=== PATIENT | female | born 1980 | race Caucasian/White ===

== ENCOUNTER 2023-02-05 08:24 | Emergency (ER) | payer MEDICAID, SELFPAY ==
[2023-02-05 08:35] VITALS: BP 128/91; PULSE 86; RESP 20; O2SAT 100; BMI 31.7
--- NOTE | 2023-02-05 08:37 | CRLHL7_ITS ---
For Patients: As a result of the Century Cures Act, medical imaging exams and procedure reports are released immediately into your electronic medical record. You may view this report before your referring provider. If you have questions, please contact your health care provider. INDICATION: upper abdominal pain COMPARISON: none TECHNIQUE: Real time merino scale imaging and color Doppler analysis was performed of the right upper quadrant. FINDINGS: The patient`s liver is of normal size and has uniform echogenicity. There is a normal appearance of the hepatic IVC and proximal abdominal aorta. There is no evidence of ascites. The gallbladder is of normal size and there is adherent echogenic material within the gallbladder fundus measuring up to 6.8 millimeters. The gallbladder wall measures 2.5 mm in thickness. The common bile duct is of normal size and measures 3.6 mm in diameter at the level of the treva hepatis. The pancreas appears normal. There is no evidence of a stone or hydronephrosis within the right kidney. The right kidney measures 9.6 cm in length. IMPRESSION: Hypoechoic adherent material within the gallbladder fundus measuring up to 6.8 millimeters, gallbladder polyp or focal adenomyomatosis. Follow-up in 1 year recommended. However, if the patient is focally tender in the right upper quadrant, consider surgical referral. Dictated by Jairo Larson MD @ 02/05/2023 9:28:31 AM (Electronically Signed)
--- NOTE | 2023-02-05 08:43 | ED.GENADULT ---
HPI - General Adult General Date Seen: 02/05/23 Chief complaint: Abdominal Pain Stated complaint: abdominal pain, vomiting Time Seen by Provider: 02/05/23 08:36 Source: patient Mode of arrival: ambulatory Limitations: no limitations History of Present Illness HPI narrative: Patient is a 42-year-old woman who presents for evaluation of upper abdominal pain. She said she had rather abrupt onset of pain around 5:00 p.m. last night but it was worse this morning when she woke up, and ultimately she vomited. She has not had diarrhea, fevers, black or bloody stools, urinary symptoms. No history of similar previous pain. No abdominal surgeries. No suspicion of , she does take control pills and last period was normal. General health is good. Allergies to vancomycin. She does not smoke or drink significantly. Related Data Previous Rx's Medication Instructions Recorded cetirizine 10 mg tablet 10 mg PO QDAY #90 tabs 12/06/22 dextroamphetamine-amphetamine 20 30 mg (1.5 x 20 mg) PO QDAY #45 01/27/23 mg tablet tabs Allergies Allergy/AdvReac Type Severity Reaction Status Date / Time Vancomycin Allergy Severe body Uncoded 06/16/22 10:41 swelling Review of Systems Status of ROS: Reports: 6 or more systems reviewed and unremarkable except as noted in History and below [facility] Medical History Pain of foot ?M79.673 - Pain in unspecified foot (ICD-10) ADD (attention deficit disorder) ?F98.8 - Other specified behavioral and emotional disorders with onset usually occurring in childhood and adolescence (ICD-10) Social History Smoking Status: Current every day smoker What tobacco products do you use: cigarettes Second hand tobacco smoke exposure: Yes How often do you have a drink containing alcohol: never How often do you have six or more drinks on one occasion: Never AUDIT-C Alcohol total score: 0 Non-prescribed substance use: marijuana (any form) Exam Narrative: Exam Narrative: Vital signs as noted above. In general, an alert, nontoxic woman, looks visibly uncomfortable, prefers to be hunched forward. Head: Normocephalic, atraumatic. Eyes: Pupils are equal reactive. Extraocular movements are full. Conjunctivae are normal. ENT: Mucous membranes are moist. Throat is normal. Neck: Supple without lymphadenopathy. Heart: Regular rate and rhythm. No murmur or rub. Lungs: Clear bilaterally. No increased work of breathing, crackles or wheezes. Abdomen: Nondistended, upper abdominal tenderness, positive Espinal's. No rebound guarding or rigidity. Extremities: Well perfused. No edema. No calf tenderness. Pulses intact. Neurologic: Patient is alert and oriented to person and place. Speech is fluent. Face is symmetric. Moves all extremities equally. Affect: Normal. Skin: Warm and dry. Well perfused. Const: Vital Signs, click to edit/add: Vital Signs - 24 hr 02/05/23 08:35 02/05/23 09:57 02/05/23 11:30 Temperature 96.8 F L Pulse Rate [Pulse Oximeter] 86 52 L 61 Respiratory Rate 20 16 Blood Pressure [Ri ght Upper Arm] 128/91 H 128/92 H 123/86 Pulse Oximetry 100 99 97 Oxygen Delivery Me thod Room Air Room Air Room Air Documenting provider has reviewed patient's vital signs: yes Course Course ED Course: Plan at this time is to establish an IV and give medications for pain and nausea as well as a L of normal saline. Diagnostic considerations include cholecystitis or biliary colic, gastritis or peptic ulcer disease, perforated viscus, diverticulitis, colitis, pancreatitis among others. I do not believe this to be cardiac, she has significant abdominal tenderness and absence of risk factors. Formal right upper quadrant ultrasound was read as follows:FINDINGS: The patient`s liver is of normal size and has uniform echogenicity. There is a normal appearance of the hepatic IVC and proximal abdominal aorta. There is no evidence of ascites. The gallbladder is of normal size and there is adherent echogenic material within the gallbladder fundus measuring up to 6.8 millimeters. The gallbladder wall measures 2.5 mm in thickness. The common bile duct is of normal size and measures 3.6 mm in diameter at the level of the treva hepatis. The pancreas appears normal. There is no evidence of a stone or hydronephrosis within the right kidney. The right kidney measures 9.6 cm in length. IMPRESSION: Hypoechoic adherent material within the gallbladder fundus measuring up to 6.8 millimeters, gallbladder polyp or focal adenomyomatosis. Follow-up in 1 year recommended. However, if the patient is focally tender in the right upper quadrant, consider surgical referral. Labs were fairly unremarkable, white blood cell count was normal, hemoglobin was normal. Metabolic panel and LFTs were normal, CRP was minimally elevated at 1.5. Lipase was mildly elevated as well at 387. test and urine were both negative. She felt improved after Toradol, declined the need for further pain medications. No further vomiting. I consulted general surgery and Dr. Brown saw this patient as well. She had an MRCP reviewed by Dr. Mccord as well as Dr. Brown, without significant acute findings. Common bile duct is unremarkable. She has recommended that the patient be discharged home given that she is feeling better, with outpatient follow-up in surgery clinic. I spoke with the patient about pain control at home, she has changed her mind and would like to have some oxycodone for home use. Will use ibuprofen plus Tylenol for baseline pain. I also gave her some Zofran. If pain is worsening or severe despite treatment or if new symptoms such as fever or persistent vomiting develop, return to the emergency department at any time. Recommended clear liquids today, advance diet as able. Vital Signs Vital signs: Initial Vital Signs Pulse Rate 86 02/05/23 08:35 Respiratory Rate 20 02/05/23 08:35 Blood Pressure 128/91 H 02/05/23 08:35 Blood Pressure Mean 103 02/05/23 08:35 Blood Pressure Position Sitting 02/05/23 08:35 Pulse Oximetry 100 02/05/23 08:35 Oxygen Delivery Method Room Air 02/05/23 08:35 Vital Signs Pulse Rate 86 02/05/23 08:35 Respiratory Rate 20 02/05/23 08:35 Blood Pressure 128/91 H 02/05/23 08:35 Pulse Oximetry 100 02/05/23 08:35 Oxygen Delivery Method Room Air 02/05/23 08:35 Temperature 96.8 F L 02/05/23 09:57 Pulse Rate 61 02/05/23 11:30 Respiratory Rate 16 02/05/23 09:57 Blood Pressure 123/86 02/05/23 11:30 Pulse Oximetry 97 02/05/23 11:30 Oxygen Delivery Method Room Air 02/05/23 11:30 Medical Decision Making Lab Data Labs: Lab Results 02/05/23 02/05/23 Range/Units 08:43 09:20 WBC 8.51 (4.50-11.00) K/uL RBC 5.05 (4.00-5.20) m/uL Hgb 15.2 (12.0-16.0) gm/dL Hct 45.0 (33.0-51.0) % MCV 89 (80-100) fL MCH 30 (26-34) pg MCHC 34 (32-36) gm/dL RDW Coeff of Kedar 12.9 (11.5-15.5) % Plt Count 311 (140-440) K/uL Neut % (Auto) 78.8 H (42.0-72.0) % Lymph % (Auto) 13.0 L (20-44) % [place] % (Auto) 5.2 (0.0-11.0) % Eos % (Auto) 2.5 (0.0-7.0) % Baso % (Auto) 0.4 (0.0-3.0) % Neut # (Auto) 6.70 (1.7-7.0) K/uL Lymph # (Auto) 1.10 (0.90-2.90) K/uL [place] # (Auto) 0.40 (0.00-0.90) K/UL Eos # (Auto) 0.21 (0.00-0.50) K/uL Baso # (Auto) 0.03 (0.00-0.30) K/uL Abs Immat Gran (auto) 0.01 (0.00-0.30) K/uL Imm/Tot Granulo (auto) 0.1 % Sodium 137 (135-149) mmol/L Potassium 4.2 (3.6-5.1) mmol/L Chloride 101 (96-114) mmol/L Carbon Dioxide 23 (20-32) mmol/L Anion Gap 13 (7-15) mEq/L BUN 12 (5-24) mg/dL Creatinine 0.8 (0.5-1.5) mg/dL Estimated Creat Clear 97.69 Estimated GFR 95 ml/min Glucose 106 (60-115) mg/dL Calcium 9.7 (8.4-10.6) mg/dL Total Bilirubin 0.4 (0.1-1.5) mg/dL Direct Bilirubin 0.0 (0.0-0.5) mg/dL AST 34 (12-35) U/L ALT 20 (4-35) U/L Alkaline Phosphatase 83 (40-150) U/L C-Reactive Protein 1.5 H (0.5-1.0) mg/dL Total Protein 7.7 (6.0-8.3) g/dL Albumin 4.4 (3.3-5.0) g/dL Lipase 387 H (23-300) U/L HCG, Qual Negative (Negative) Urine Color Yellow (Yellow) Urine Appearance Clear (Clear) Urine pH 5.5 (5.0-8.5) Ur Specific Moore >= 1.030 (1.000-1.030) Urine Protein Negative (Negative) Urine Glucose (UA) Negative (Negative) Urine Ketones Negative (Negative) Urine Blood Negative (Negative) Urine Nitrite Negative (Negative) Urine Bilirubin Negative (Negative) Urine Urobilinogen 0.2 (0.2-1.0) Ur Leukocyte Esterase Negative (Negative) Urine RBC 0-2 (0-2) Urine WBC 0-2 (0-5) Ur Squamous Epith Cells Few (None-Few) Urine Bacteria Few A (None) Discharge Plan Discharge Clinical Impression: Pancreatitis, Adenomyoma, gallbladder Patient Disposition: Home, Self-Care Condition: Improved Additional Instructions: Ibuprofen 400 mg plus or minus Tylenol 1000 mg 3 times a day as needed. Oxycodone if needed for more severe pain. Zofran if needed for nausea and/or vomiting. For severe uncontrolled pain, uncontrolled vomiting, new symptoms such as fever return to the emergency department. Otherwise follow up with Dr. Brown next week as planned. Prescriptions: No Action cetirizine 10 mg tablet 10 mg PO QDAY Qty: 90 3RF dextroamphetamine-amphetamine 20 mg tablet 30 mg PO QDAY Qty: 45 0RF Rx Instructions: 20 mg in AM and 10 mg at noon Follow Up/Referrals: Johny Davis MD [Primary Care Provider] - Stand Alone Forms: [employer] Info Instructions
[2023-02-05] MEDS: 0.9 % SODIUM CHLORIDE 1000 ml 1,000 ML IV (08:58)
[2023-02-05] MEDS: KETOROLAC 15 MG/ML inj IVP (08:58)
[2023-02-05] MEDS: ONDANSETRON 2 MG/ML inj 4 MG IVP (08:58)
[2023-02-05 08:59] LABS: Basophils Absolute Auto 0.03 K/uL (0.00-0.30); Basophils Percent Auto 0.4 % (0.0-3.0); Eosinophils Absolute Auto 0.21 K/uL (0.00-0.50); Eosinophils Percent Auto 2.5 % (0.0-7.0); Hemoglobin* 15.2 gm/dL (12.0-16.0); Immature Granulocytes Abs Auto 0.01 K/uL (0.00-0.30); Immature Granulocytes Pct Auto 0.1 %; Mean Corpuscular HGB Conc 34 gm/dL (32-36); Mean Corpuscular Hemoglobin 30 pg (26-34); Mean Corpuscular Volume 89 fL (80-100); Monocytes Percent Auto 5.2 % (0.0-11.0); Neutrophils Percent Auto 78.8 % (42.0-72.0); Platelet Count* 311 K/uL (140-440); RDW Coefficient of Variation % 12.9 % (11.5-15.5); Red Blood Count 5.05 m/uL (4.00-5.20); White Blood Count* 8.51 K/uL (4.50-11.00)
[2023-02-05 09:07] LABS: Slide Review Reflex No
[2023-02-05 09:14] LABS: Albumin* 4.4 g/dL (3.3-5.0); Chloride* 101 mmol/L (96-114); Sodium* 137 mmol/L (135-149)
[2023-02-05 09:15] LABS: Potassium* 4.2 mmol/L (3.6-5.1)
[2023-02-05 09:17] LABS: Anion Gap 13 mEq/L (7-15); Aspartate Amino Transferase* 34 U/L (12-35); Bilirubin Total* 0.4 mg/dL (0.1-1.5); Carbon Dioxide* 23 mmol/L (20-32); Creatinine* 0.8 mg/dL (0.5-1.5); Est. Creatinine Clearance* 97.69; Estimated Glomerular Filt Rate 95 ml/min; Total Protein* 7.7 g/dL (6.0-8.3)
[2023-02-05 09:18] LABS: Alanine Aminotransferase* 20 U/L (4-35); Alkaline Phosphatase* 83 U/L (40-150); Blood Urea Nitrogen* 12 mg/dL (5-24); Calcium* 9.7 mg/dL (8.4-10.6); Glucose* 106 mg/dL (60-115); Lipase* 387 U/L (23-300)
[2023-02-05 09:20] LABS: C Reactive Protein* 1.5 mg/dL (0.5-1.0)
[2023-02-05 09:27] LABS: HCG Qualitative Serum* Negative (Negative)
[2023-02-05 09:31] LABS: Appearance Urine Clear (Clear); Bilirubin Urine Negative (Negative); Blood Urine Negative (Negative); Color Urine Yellow (Yellow); Glucose Urine Negative (Negative); Ketones Urine Negative (Negative); Leukocyte Esterase Urine Negative (Negative); Nitrite Urine Negative (Negative); Protein Urine Negative (Negative); Specific Gravity Urine >= 1.030 (1.000-1.030); Urobilinogen Urine 0.2 (0.2-1.0); pH Urine 5.5 (5.0-8.5)
--- NOTE | 2023-02-05 09:34 | CRLHL7_ITS ---
For Patients: As a result of the Century Cures Act, medical imaging exams and procedure reports are released immediately into your electronic medical record. You may view this report before your referring provider. If you have questions, please contact your health care provider. Indication: Possible gallbladder polyps. Upper abdominal pain. Pancreatitis. Technique: MRI of the abdomen without intravenous gadolinium, MRCP. Three plane localizer, 3 plane SSFP, axial T1 weighted in and out of phase, axial T2 weighted haste, coronal T2 weighted haste, and high-resolution, heavily T2 weighted 2D/3D MRCP images. No intravenous gadolinium administered. Comparison: Ultrasound of the abdomen, 02/05/2023. Findings: Focal adenomyomatosis is present in the gallbladder lumen, as seen on series 7, image 17. There are no inflammatory changes in the right upper quadrant. The liver morphology is non cirrhotic. No perihepatic ascites. No adrenal mass. There is no solid renal mass, hydronephrosis, perinephric fluid collection. No pancreatic glandular atrophy. Normal marrow signal intensity in the included axial skeleton. No mural thickening or perienteric edema in the small bowel or colon. No evidence to indicate hepatic steatosis on chemical shift imaging. On MRCP images, the common bile duct is normal in caliber, measuring 2-3 millimeters. Impression: 1. Fundal gallbladder adenomyomatosis. 2. Normal caliber biliary tree. 3. There is no pancreatic duct dilation, glandular atrophy, mass, or fat stranding in the anterior pararenal space. 4. This report is in agreement with the preliminary report submitted by [facility], 02/05/2023, 12:11 p.m. Dictated by Imtiaz Nielsen MD @ 02/09/2023 2:09:44 PM (Electronically Signed)
[2023-02-05 09:38] LABS: Bacteria Urine Few; RBC Urine 0-2 (0-2); Squamous Epithelial Cell Urine Few (None-Few); WBC Urine 0-2 (0-5)
[2023-02-05 09:57] VITALS: BP 128/92; PULSE 52; RESP 16; TEMP 36; O2SAT 99
[2023-02-05 11:30] VITALS: BP 123/86; PULSE 61; O2SAT 97
--- NOTE | 2023-02-05 12:35 | P.GSCN_ITS ---
History of Present Illness Consult details Date Seen: 02/05/23 Consult date: 02/05/23 Narrative: Patient presented to the emergency department this morning with upper abdominal pain. She states that the pain started last night after eating some [employer] dinner. A continued throughout the night and when it was still present this morning she came in to be seen. She has never had pain like this before. She denies any radiation of pain. No fever or chills. She did have some associated nausea and emesis. Her abdominal surgical history is positive for x2 and laparoscopic removal of an ovarian cyst. Since being in the emergency department she has received some Toradol and does feel like her pain is improving. [facility] Medical History Pain of foot ?M79.673 - Pain in unspecified foot (ICD-10) ADD (attention deficit disorder) ?F98.8 - Other specified behavioral and emotional disorders with onset usually occurring in childhood and adolescence (ICD-10) Social History Smoking Status: Current every day smoker What tobacco products do you use: cigarettes Second hand tobacco smoke exposure: Yes How often do you have a drink containing alcohol: never How often do you have six or more drinks on one occasion: Never AUDIT-C Alcohol total score: 0 Non-prescribed substance use: marijuana (any form) Meds Home Medications and Allergies Allergies Allergy/AdvReac Type Severity Reaction Status Date / Time Vancomycin Allergy Severe body Uncoded 06/16/22 10:41 swelling Exam Narrative: Exam Narrative: General: Alert and oriented, no acute distress Respiratory: Equal breath rise bilaterally, maintained on room air CV: Well perfused Abdomen: Soft, nontender nondistended. Benign abdomen. Const: Vital Signs, click to edit/add: Vital Signs - 24 hr 02/05/23 08:35 02/05/23 09:57 02/05/23 11:30 Temperature 96.8 F L Pulse Rate [Pulse Oximeter] 86 52 L 61 Respiratory Rate 20 16 Blood Pressure [Ri ght Upper Arm] 128/91 H 128/92 H 123/86 Pulse Oximetry 100 99 97 Oxygen Delivery Me thod Room Air Room Air Room Air Results Labs Labs: Abnormal lab results 02/05/23 02/05/23 Range/Units 08:43 09:20 Neut % (Auto) 78.8 H (42.0-72.0) % Lymph % (Auto) 13.0 L (20-44) % C-Reactive Protein 1.5 H (0.5-1.0) mg/dL Lipase 387 H (23-300) U/L Urine Bacteria Few A (None) Diabetes panel 02/05/23 Range/Units 08:43 Sodium 137 (135-149) mmol/L Potassium 4.2 (3.6-5.1) mmol/L Chloride 101 (96-114) mmol/L Carbon Dioxide 23 (20-32) mmol/L BUN 12 (5-24) mg/dL Creatinine 0.8 (0.5-1.5) mg/dL Glucose 106 (60-115) mg/dL Calcium 9.7 (8.4-10.6) mg/dL AST 34 (12-35) U/L ALT 20 (4-35) U/L Alkaline Phosphatase 83 (40-150) U/L Total Protein 7.7 (6.0-8.3) g/dL Albumin 4.4 (3.3-5.0) g/dL Calcium panel 02/05/23 Range/Units 08:43 Calcium 9.7 (8.4-10.6) mg/dL Albumin 4.4 (3.3-5.0) g/dL Pituitary panel 02/05/23 Range/Units 08:43 Sodium 137 (135-149) mmol/L Potassium 4.2 (3.6-5.1) mmol/L Chloride 101 (96-114) mmol/L Carbon Dioxide 23 (20-32) mmol/L BUN 12 (5-24) mg/dL Creatinine 0.8 (0.5-1.5) mg/dL Glucose 106 (60-115) mg/dL Calcium 9.7 (8.4-10.6) mg/dL Adrenal panel 02/05/23 Range/Units 08:43 Sodium 137 (135-149) mmol/L Potassium 4.2 (3.6-5.1) mmol/L Chloride 101 (96-114) mmol/L Carbon Dioxide 23 (20-32) mmol/L BUN 12 (5-24) mg/dL Creatinine 0.8 (0.5-1.5) mg/dL Glucose 106 (60-115) mg/dL Calcium 9.7 (8.4-10.6) mg/dL Total Bilirubin 0.4 (0.1-1.5) mg/dL AST 34 (12-35) U/L ALT 20 (4-35) U/L Alkaline Phosphatase 83 (40-150) U/L Total Protein 7.7 (6.0-8.3) g/dL Albumin 4.4 (3.3-5.0) g/dL All other labs normal. Imaging Abdominal ultrasound report/results: report reviewed and image reviewed Additional studies: MRI of abdomen reviewed with radiologist. Evidence of likely adenomyomatosis of the fundus of the gallbladder. This is likely an incidental finding. No evidence of stones. Biliary system without evidence of obstruction or sludge. The pancreatic duct without evidence of obstruction or sludge. Final read is pending. Assessment and Plan Assessment and plan (1) Biliary dyskinesia: Status: Acute Plan Patient is a 42-year-old female who presents with a less than 12 hour history epigastric abdominal pain. Workup was obtained with normal LFTs, no elevation in WBC. Her lipase is mildly elevated at 384. Abdominal ultrasound demonstrates no stones but incidental finding of adenomyomatosis of the fundus. An MRCP was performed. Showed no obstruction of the biliary system or pancreatic duct. Again was demonstrated adenomyomatosis of the fundus of the gallbladder. Patient did have partial improvement in her symptoms with Toradol administration in observation. At this time findings are more consistent with biliary dyskinesia versus acute cholecystitis. Recommend patient discharged from the emergency department with a few oral pain pills. Patient was instructed to continue with a low-fat diet. Will follow up with the patient next week in surgery clinic here at [facility]. She was instructed to call the clinic or present back to the emergency department with any worsening abdominal pain not controlled with oral medication, fever for persistent nausea/vomiting.
[2023-02-05 13:04] VITALS: BP 112/75; PULSE 56; RESP 16; O2SAT 95
== END 2023-02-05 13:14 | disposition home or self-care (01) ==
PROVIDERS: Emergency Provider Emergency Medicine; PCP Family Medicine
DX: K85.90 Acute pancreatitis without necrosis or infection, unspecified (principal); D13.5 Benign neoplasm of extrahepatic bile ducts
CPT/HCPCS: 36415; 74181; 76705; 80048; 80076; 81001; 81025; 83690; 84703; 85025; 86140; 87086; 96361; 96374; 96375; 99284; J1885; J2405; J7030

== ENCOUNTER 2023-02-12 13:02 | Emergency (ER) | payer MEDICAID, SELFPAY ==
[2023-02-12 13:10] VITALS: BP 116/84; PULSE 54; RESP 18; TEMP 36.2; O2SAT 100; BMI 31.0
--- NOTE | 2023-02-12 13:35 | PC.NURSE ---
IV started, labs drawn and held. pt drank water at 1030, last solids was 02/11 at 2345.
[2023-02-12 14:19] LABS: Lactate* 1.8 mmol/L (0.5-1.9)
[2023-02-12 14:25] LABS: Basophils Absolute Auto 0.03 K/uL (0.00-0.30); Basophils Percent Auto 0.5 % (0.0-3.0); Eosinophils Absolute Auto 0.25 K/uL (0.00-0.50); Hemoglobin* 13.3 gm/dL (12.0-16.0); Lymphocytes Absolute Auto 2.02 K/uL (0.90-2.90); Lymphocytes Percent Auto 32.2 % (20-44); Mean Corpuscular HGB Conc 33 gm/dL (32-36); Mean Corpuscular Hemoglobin 30 pg (26-34); Mean Corpuscular Volume 90 fL (80-100); Monocytes Percent Auto 6.8 % (0.0-11.0); Neutrophils Absolute Auto 3.55 K/uL (1.7-7.0); Neutrophils Percent Auto 56.5 % (42.0-72.0); Platelet Count* 312 K/uL (140-440); RDW Coefficient of Variation % 12.8 % (11.5-15.5); Red Blood Count 4.45 m/uL (4.00-5.20); White Blood Count* 6.28 K/uL (4.50-11.00)
[2023-02-12] MEDS: 0.9 % SODIUM CHLORIDE 1000 ml 1,000 ML IV (14:25)
[2023-02-12] MEDS: KETOROLAC 15 MG/ML inj IVP (14:26)
[2023-02-12] MEDS: ONDANSETRON 2 MG/ML inj 4 MG IVP (14:27)
[2023-02-12 14:29] LABS: Slide Review Reflex No
[2023-02-12 14:41] LABS: Albumin* 3.7 g/dL (3.3-5.0)
[2023-02-12 14:42] LABS: Chloride* 109 mmol/L (96-114); Potassium* 4.9 mmol/L (3.6-5.1); Sodium* 138 mmol/L (135-149)
[2023-02-12 14:44] LABS: Alanine Aminotransferase* 19 U/L (4-35); Alkaline Phosphatase* 59 U/L (40-150); Aspartate Amino Transferase* 38 U/L (12-35); Bilirubin Total* 0.3 mg/dL (0.1-1.5); Total Protein* 6.7 g/dL (6.0-8.3)
[2023-02-12 14:45] LABS: Anion Gap 6 mEq/L (7-15); Carbon Dioxide* 23 mmol/L (20-32); Creatinine* 0.7 mg/dL (0.5-1.5); Est. Creatinine Clearance* 111.65; Estimated Glomerular Filt Rate 112 ml/min; Lipase* 105 U/L (23-300)
[2023-02-12 14:46] LABS: Blood Urea Nitrogen* 12 mg/dL (5-24); Calcium* 8.8 mg/dL (8.4-10.6); Glucose* 83 mg/dL (60-115)
[2023-02-12 14:48] LABS: C Reactive Protein* 0.8 mg/dL (0.5-1.0)
--- NOTE | 2023-02-12 15:04 | CRLHL7_ITS ---
For Patients: As a result of the Century Cures Act, medical imaging exams and procedure reports are released immediately into your electronic medical record. You may view this report before your referring provider. If you have questions, please contact your health care provider. INDICATION: Right upper quadrant abdomen pain. TECHNIQUE: Ultrasound abdomen limited. Sonographic images of the gallbladder were obtained using merino-scale and color Doppler images. COMPARISON: February 05, 2023. FINDINGS: Gallbladder: Fundal adenomyomatosis. No stones or sludge. Normal wall thickness. No pericholecystic fluid. Common bile duct: 3 mm. IMPRESSION: Fundal adenomyomatosis, a benign finding. Otherwise, no cholelithiasis, cholecystitis, or biliary obstruction. Dictated by Khurram Ramsay MD @ 02/12/2023 4:19:16 PM (Electronically Signed)
--- NOTE | 2023-02-12 15:20 | PM.GSCN ---
History of Present Illness Consult details Date Seen: 02/12/23 Consult date: 02/12/23 Narrative: Patient presented to the emergency department for severe epigastric abdominal pain, bloating and frequent burping. This was similar to an episode of abdominal pain that she had last week. I initially saw the patient in the emergency department during that 1st episode. Workup at that time demonstrated mild elevation in lipase (387), elevated CRP (1.5). Normal LFTs. Abdominal ultrasound demonstrating questionable adenomyomatosis of the fundus. An MRCP was performed due to elevation in the lipase, which did not show any stones within the common bile duct or inflammation of the pancreas. Again was the finding of adenomyomatosis of the fundus. Patient was initially scheduled to follow-up with me in clinic today to see if she was still symptomatic from her initial episode. This morning at 9:30 a.m. she started to have severe epigastric abdominal pain, prompting her to come into the emergency department. This is similar to what she experienced before. She last ate yesterday evening. She has been trying to watch what she eats and stick to more low-fat foods. Throughout this week she states that the pain has actually been manageable, with a double epigastric pain, not requiring any pain medicine. Workup so far has been negative with normal WBC and LFTs. Lipase is normalized. CRP is normalized. Since being in the emergency department she has had some Toradol and Zofran, which significantly improved her symptoms. She still has an ultrasound pending, but feels like she might be able to manage with this pain at home. Review of Systems Status of ROS: Reports: 6 or more systems reviewed and unremarkable except as noted in History and below [facility] Medical History Pain of foot ?M79.673 - Pain in unspecified foot (ICD-10) ADD (attention deficit disorder) ?F98.8 - Other specified behavioral and emotional disorders with onset usually occurring in childhood and adolescence (ICD-10) Social History Smoking Status: Current every day smoker What tobacco products do you use: cigarettes Smoking packs per day: 0.25 Smoking cigarettes per day: 5.0 Years smoked: 2 Smoking pack-years: 0.50 Second hand tobacco smoke exposure: Yes How often do you have a drink containing alcohol: never How often do you have six or more drinks on one occasion: Never AUDIT-C Alcohol total score: 0 Non-prescribed substance use: marijuana (any form) service: No Meds Home Medications and Allergies Allergies Allergy/AdvReac Type Severity Reaction Status Date / Time vancomycin Allergy Verified 02/12/23 13:09 Exam Narrative: Exam Narrative: General: Alert and oriented, no acute distress Respiratory: Equal breath rise, clear breath sounds and maintained on room air CV: Regular rhythm and rate Abdomen: Soft, nontender nondistended. No guarding or rebound. Negative Espinal sign. Const: Vital Signs, click to edit/add: Vital Signs - 24 hr 02/12/23 13:10 Temperature 97.1 F L Pulse Rate [Pulse Oximeter] 54 L Respiratory Rate 18 Blood Pressure [Ri ght Upper Arm] 116/84 Pulse Oximetry 100 Oxygen Delivery Me thod Room Air Results Labs Labs: Abnormal lab results 02/12/23 Range/Units 14:00 Anion Gap 6 L (7-15) mEq/L AST 38 H (12-35) U/L Diabetes panel 02/12/23 Range/Units 14:00 Sodium 138 (135-149) mmol/L Potassium 4.9 (3.6-5.1) mmol/L Chloride 109 (96-114) mmol/L Carbon Dioxide 23 (20-32) mmol/L BUN 12 (5-24) mg/dL Creatinine 0.7 (0.5-1.5) mg/dL Glucose 83 (60-115) mg/dL Calcium 8.8 (8.4-10.6) mg/dL AST 38 H (12-35) U/L ALT 19 (4-35) U/L Alkaline Phosphatase 59 (40-150) U/L Total Protein 6.7 (6.0-8.3) g/dL Albumin 3.7 (3.3-5.0) g/dL Calcium panel 02/12/23 Range/Units 14:00 Calcium 8.8 (8.4-10.6) mg/dL Albumin 3.7 (3.3-5.0) g/dL Pituitary panel 02/12/23 Range/Units 14:00 Sodium 138 (135-149) mmol/L Potassium 4.9 (3.6-5.1) mmol/L Chloride 109 (96-114) mmol/L Carbon Dioxide 23 (20-32) mmol/L BUN 12 (5-24) mg/dL Creatinine 0.7 (0.5-1.5) mg/dL Glucose 83 (60-115) mg/dL Calcium 8.8 (8.4-10.6) mg/dL Adrenal panel 02/12/23 Range/Units 14:00 Sodium 138 (135-149) mmol/L Potassium 4.9 (3.6-5.1) mmol/L Chloride 109 (96-114) mmol/L Carbon Dioxide 23 (20-32) mmol/L BUN 12 (5-24) mg/dL Creatinine 0.7 (0.5-1.5) mg/dL Glucose 83 (60-115) mg/dL Calcium 8.8 (8.4-10.6) mg/dL Total Bilirubin 0.3 (0.1-1.5) mg/dL AST 38 H (12-35) U/L ALT 19 (4-35) U/L Alkaline Phosphatase 59 (40-150) U/L Total Protein 6.7 (6.0-8.3) g/dL Albumin 3.7 (3.3-5.0) g/dL All other labs normal. Assessment and Plan Assessment and plan (1) Biliary dyskinesia: Status: Acute (2) Adenomyoma, gallbladder: Status: Acute Plan Patient is a 42-year-old female with symptoms and clinical workup suspicious for biliary dyskinesia. At this time the patient has had significant improvement in her pain and does feel like she can manage at home. A repeat ultrasound has been ordered and is pending. If findings are within normal limits, given the patient's normal labs and improvement in pain it is reasonable to schedule the patient for surgery early next week. I had a detailed conversation with the patient regarding the diagnosis of biliary dyskinesia. We discussed the treatment options including observation with diet modification and laparoscopic cholecystectomy. We discussed the risks of surgery (including but not limited to) the risks of bleeding, infection, injury to other structures in the abdomen including bile duct injury, bile leak and conversion to an open operation. We discussed the possibility that the patient's pain not improve with surgery. We discussed the possibility of permanent post-operative diarrhea that may require medical management. Additionally, the conceivably of complications requiring additional surgery or further hospitalization were also discussed including the risks of [place], respiratory failure, stroke and blood clots. The patient voiced an understanding of our conversation, had the opportunity to ask questions, agreed to accept the risks of surgery and asked that we proceed with surgery. Patient has been put on the schedule for Thursday02/16/2021 at 2:00 p.m. with myself for laparoscopic cholecystectomy. This document to serve vas preoperative history and physical. Should patient have abnormal imaging findings from ultrasound or any acute clinical changes requiring more urgent evaluation please call the on-call general surgeon.
--- NOTE | 2023-02-12 15:59 | ED.GENADULT ---
HPI - General Adult General Date Seen: 02/12/23 Chief complaint: Abdominal Pain Stated complaint: Gallbladder pain Time Seen by Provider: 02/12/23 13:06 Source: patient and old records reviewed Mode of arrival: ambulatory Limitations: no limitations History of Present Illness HPI narrative: Patient is a 42-year-old woman here with upper abdominal pain. I saw her last week with the same symptoms. She had a workup including an ultrasound which showed gallbladder adenomyomatosis, and she had an MRCP which was normal. Her labs were normal at that time aside from a lipase of 357. She was discharged home with surgery follow-up which was to happen today at 2, but she came here instead due to pain. She says overall her pain has been okay until this morning at 9:00 a.m. when it became more severe. She has not had fevers, nausea or vomiting. Pain is primarily in the epigastrium. She has noted a lot of burping. She has not had diarrhea, black or bloody stools. Related Data Previous Rx's Medication Instructions Recorded cetirizine 10 mg tablet 10 mg PO QDAY #90 tabs 12/06/22 dextroamphetamine-amphetamine 20 30 mg (1.5 x 20 mg) PO QDAY #45 01/27/23 mg tablet tabs Allergies Allergy/AdvReac Type Severity Reaction Status Date / Time vancomycin Allergy Verified 02/12/23 13:09 Review of Systems Status of ROS: Reports: 10 or more systems reviewed and unremarkable except as noted in History and below [facility] Medical History Pain of foot ?M79.673 - Pain in unspecified foot (ICD-10) ADD (attention deficit disorder) ?F98.8 - Other specified behavioral and emotional disorders with onset usually occurring in childhood and adolescence (ICD-10) Social History Smoking Status: Current every day smoker What tobacco products do you use: cigarettes Smoking packs per day: 0.25 Smoking cigarettes per day: 5.0 Years smoked: 2 Smoking pack-years: 0.50 Second hand tobacco smoke exposure: Yes How often do you have a drink containing alcohol: never How often do you have six or more drinks on one occasion: Never AUDIT-C Alcohol total score: 0 Non-prescribed substance use: marijuana (any form) service: No Exam Narrative: Exam Narrative: Vital signs as noted above. In general, an alert, well-appearing patient. Head: Normocephalic, atraumatic. Eyes: Pupils are equal reactive. Extraocular movements are full. Conjunctivae are normal. ENT: Mucous membranes are moist. Throat is normal. Neck: Supple without lymphadenopathy. Heart: Regular rate and rhythm. No murmur or rub. Lungs: Clear bilaterally. No increased work of breathing, crackles or wheezes. Abdomen: Soft and nondistended. Tenderness primarily in the epigastrium without rebound guarding or rigidity. Extremities: Well perfused. No edema. No calf tenderness. Pulses intact. Neurologic: Patient is alert and oriented to person and place. Speech is fluent. Face is symmetric. Moves all extremities equally. Affect: Normal. Skin: Warm and dry. Well perfused. Const: Vital Signs, click to edit/add: Vital Signs - 24 hr 02/12/23 13:10 02/12/23 16:16 02/12/23 16:24 Temperature 97.1 F L 97.5 F L 97.5 F L Pulse Rate [Pulse Oximeter] 54 L 53 L Respiratory Rate 18 16 Blood Pressure [Ri ght Upper Arm] 116/84 119/76 Pulse Oximetry 100 98 Oxygen Delivery Me thod Room Air Room Air Documenting provider has reviewed patient's vital signs: yes Course Course ED Course: I repeated labs, these remain unremarkable. Her white count is 6.28 with a normal diff. Metabolic panel is normal, lactate is 1.8. LFTs are normal with the exception of an AST of 38 and her lipase today is normal at 105. CRP is normal as well. I did talk with Dr. Brown who consulted on the patient as well. I repeated her ultrasound which continues to show adenomyomatosis with a normal gallbladder wall. She feels should be able to manage her pain at home and Dr. Brown has added her to the surgery scheduled for Thursday. If she is not able to manage at home due to severe pain, fevers, vomiting or other worsening symptoms return at any time to the emergency department. Otherwise, pain management as previous and general surgery follow-up on Thursday. Patient did express that from a scheduling standpoint it would be preferable for her to have surgery tomorrow verses Thursday. I talked with Dr. Haney, there is no indication for emergent surgery here and thus the best were able to do is Thursday. Discussed this with the patient, she is comfortable with discharge. Will give her Toradol and a few more oxycodone for pain management and she understands she can return any time if things are getting worse. Vital Signs Vital signs: Initial Vital Signs Temperature 97.1 F L 02/12/23 13:10 Temperature Source Temporal Artery Scan 02/12/23 13:10 Pulse Rate 54 L 02/12/23 13:10 Pulse Rhythm Regular 02/12/23 13:10 Respiratory Rate 18 02/12/23 13:10 Blood Pressure 116/84 02/12/23 13:10 Blood Pressure Mean 94 02/12/23 13:10 Blood Pressure Position Supine 02/12/23 13:10 Pulse Oximetry 100 02/12/23 13:10 Oxygen Delivery Method Room Air 02/12/23 13:10 Vital Signs Temperature 97.1 F L 02/12/23 13:10 Pulse Rate 54 L 02/12/23 13:10 Respiratory Rate 18 02/12/23 13:10 Blood Pressure 116/84 02/12/23 13:10 Pulse Oximetry 100 02/12/23 13:10 Oxygen Delivery Method Room Air 02/12/23 13:10 Temperature 97.5 F L 02/12/23 16:24 Pulse Rate 53 L 02/12/23 16:16 Respiratory Rate 16 02/12/23 16:16 Blood Pressure 119/76 02/12/23 16:16 Pulse Oximetry 98 02/12/23 16:16 Oxygen Delivery Method Room Air 02/12/23 16:16 Medications Administered Medications: Discontinued Medications Generic Name Dose Route Start Last Admin Trade Name Freq PRN Reason Stop Dose Admin Sodium Chloride 1,000 mls @ 1,000 mls/hr 02/12/23 14:15 02/12/23 14:25 0.9 % Sodium Chloride 1000 Ml IV 02/12/23 15:14 1,000 mls/hr .Q1H TEE Administration Ketorolac Tromethamine 15 mg 02/12/23 14:09 02/12/23 14:26 Ketorolac 15 Mg/Ml Inj IVP 02/12/23 14:10 15 mg ONCE ONE Administration Ondansetron HCl 4 mg 02/12/23 14:09 02/12/23 14:27 Ondansetron 2 Mg/Ml Inj IVP 02/12/23 14:10 4 mg ONCE ONE Administration Medical Decision Making Lab Data Labs: Lab Results 02/12/23 Range/Units 14:00 WBC 6.28 (4.50-11.00) K/uL RBC 4.45 (4.00-5.20) m/uL Hgb 13.3 (12.0-16.0) gm/dL Hct 40.0 (33.0-51.0) % MCV 90 (80-100) fL MCH 30 (26-34) pg MCHC 33 (32-36) gm/dL RDW Coeff of Kedar 12.8 (11.5-15.5) % Plt Count 312 (140-440) K/uL Neut % (Auto) 56.5 (42.0-72.0) % Lymph % (Auto) 32.2 (20-44) % Luna % (Auto) 6.8 (0.0-11.0) % Eos % (Auto) 4.0 (0.0-7.0) % Baso % (Auto) 0.5 (0.0-3.0) % Neut # (Auto) 3.55 (1.7-7.0) K/uL Lymph # (Auto) 2.02 (0.90-2.90) K/uL Luna # (Auto) 0.40 (0.00-0.90) K/UL Eos # (Auto) 0.25 (0.00-0.50) K/uL Baso # (Auto) 0.03 (0.00-0.30) K/uL Abs Immat Gran (auto) 0.00 (0.00-0.30) K/uL Imm/Tot Granulo (auto) 0.0 % Sodium 138 (135-149) mmol/L Potassium 4.9 (3.6-5.1) mmol/L Chloride 109 (96-114) mmol/L Carbon Dioxide 23 (20-32) mmol/L Anion Gap 6 L (7-15) mEq/L BUN 12 (5-24) mg/dL Creatinine 0.7 (0.5-1.5) mg/dL Estimated Creat Clear 111.65 Estimated GFR 112 ml/min Glucose 83 (60-115) mg/dL Lactate 1.8 (0.5-1.9) mmol/L Calcium 8.8 (8.4-10.6) mg/dL Total Bilirubin 0.3 (0.1-1.5) mg/dL Direct Bilirubin 0.0 (0.0-0.5) mg/dL AST 38 H (12-35) U/L ALT 19 (4-35) U/L Alkaline Phosphatase 59 (40-150) U/L C-Reactive Protein 0.8 (0.5-1.0) mg/dL Total Protein 6.7 (6.0-8.3) g/dL Albumin 3.7 (3.3-5.0) g/dL Lipase 105 (23-300) U/L Discharge Plan Discharge Clinical Impression: Abdominal pain Patient Disposition: Home, Self-Care Condition: Improved Instructions: Abdominal Pain (ED) Additional Instructions: Plan for surgery on Thursday at 2:[address] Brown. If you have severe uncontrolled pain or new symptoms such as fever or vomiting you can return to the emergency department at any time. Prescriptions: No Action cetirizine 10 mg tablet 10 mg PO QDAY Qty: 90 3RF dextroamphetamine-amphetamine 20 mg tablet 30 mg PO QDAY Qty: 45 0RF Rx Instructions: 20 mg in AM and 10 mg at noon Follow Up/Referrals: oJhny Davis MD [Primary Care Provider] - Stand Alone Forms: [employer] Info Instructions
[2023-02-12 16:16] VITALS: BP 119/76; PULSE 53; RESP 16; TEMP 36.4; O2SAT 98
[2023-02-12 16:24] VITALS: TEMP 36.4
== END 2023-02-12 16:51 | disposition home or self-care (01) ==
PROVIDERS: Emergency Provider Emergency Medicine; PCP Family Medicine
DX: R10.10 Upper abdominal pain, unspecified (principal)
CPT/HCPCS: 36415; 76705; 80048; 80076; 83605; 83690; 85025; 86140; 96374; 96375; 99284; J1885; J2405; J7030

== ENCOUNTER 2023-02-16 12:43 | Day surgery (SDC) | payer MEDICAID, SELFPAY ==
[2023-02-16] VITALS (13 sets, daily range): BP systolic 110–137; BP diastolic 60–117; PULSE 56–86; RESP 16–24; TEMP 36.1–36.6; O2SAT 98–100; BMI 31.0
[2023-02-16] MEDS: LACTATED RINGERS 1000 ML 1,000 ML 100 ML IV (12:50)
[2023-02-16 13:18] LABS: Ur HCG Qualitative* Negative (Negative)
--- NOTE | 2023-02-16 13:30 | W.PM.H&PU ---
History & Physical Update History & Physical Update H&P Reviewed and patient assessed: No changes noted
[2023-02-16] MEDS: SODIUM CHLORIDE 0.9 % (FLUSH) 10 ML SYRINGE IVF (13:32)
--- NOTE | 2023-02-16 13:47 | W.ANESCHARGE ---
Anesthesia Charges Start Date/Time Anesthesia Start Date: 02/16/23 Anesthesia Start Time: 14:17 Stop Date/Time Anesthesia Stop Date: 02/16/23 Anesthesia Stop Time: 15:22
[2023-02-16] MEDS: CEFAZOLIN 2 GM INJ IVP (14:26)
[2023-02-16] MEDS: BUPIVACAINE 0.5% 30 ML INJECTION (14:40)
--- NOTE | 2023-02-16 15:15 | P.GSOP_ITS ---
Operative Note Pre-op diagnosis: Biliary dyskinesia Post-op diagnosis: Same Type of Procedure: Laparoscopic cholecystectomy Indications: Patient is a 42-year-old female who had persistent episodes of right upper quadrant abdominal pain, concerning for biliary dyskinesia. Please see consultation note for full details. Risks and benefits of operative intervention were discussed at length with the patient. Risks included but was not limited to: Bleeding, infection, risk of damage to surrounding structures, possible need for additional procedures, possible need to convert to an open o peration and postoperative complications such as pneumonia, pulmonary emboli or CT. All questions and concerns were addressed with the patient agreeing to proceed. Procedure Description: After discussing the risks and benefits of the procedure, the patient signed informed consent.? The operative site was marked and the patient was brought to the operating room and placed on the operating table in supine position.? Care was taken to pad the patient's pressure points.?? The patient was then intubated by anesthesia.?? The operative site was then prepped and draped in the usual sterile fashion.? A time-out was then performed. Entrance to the abdomen was gained via a 5 mm Visiport in the left upper quadrant. The abdomen was insufflated and briefly surveyed for signs of injury. There was none. 11 mm supra umbilical port was placed as well as 2 working ports along the right costal margin. Patient was then placed in reverse Trendelenburg position with the right side up. The gallbladder fundus was grasped and retracted cephalad. The infundibulum was grasped. A combination of hook cautery and blunt dissection was used to carefully dissect out the cystic duct and artery until they could clearly be seen entering the gallbladder without any intervening structures. The gallbladder was dissected off the cystic plate to achieve the critical view. Once this was achieved the cystic duct and artery were each clipped with 2 clips proximally and 1 clip distally and transected with the scissors. The gallbladder was then taken off of the liver bed. And removed from the abdomen using an Endo-Catch bag. The gallbladder bed was surveyed for hemostasis. The umbilical port fascia was closed with 0 Vicryl via the Gurvinder-Terell. All other ports removed under direct visualization. The skin was closed with absorbable subcuticular suture. Instrument sponge and needle counts were correct at the end of the case. The patient was then woken and transferred to the PACU in stable condition. Sterile dressings were then applied. ? Findings: Normal appearing gallbladder. Anesthesia: GETA Surgeon: Suad Brown MD Estimated blood loss (mL): 5 Specimen: Gallbladder Condition: stable Disposition: PACU Date of procedure: 02/16/23
[2023-02-16] MEDS: fentaNYL 100 MCG/2 ML inj 50 MCG IVP ×4 (15:17→15:32)
--- NOTE | 2023-02-16 15:25 | W.ANESCHARGE ---
Anesthesia Charges Start Date/Time Anesthesia Start Date: 02/16/23 Anesthesia Start Time: 14:17 Stop Date/Time Anesthesia Stop Date: 02/16/23 Anesthesia Stop Time: 15:22
[2023-02-16] MEDS: KETOROLAC 15 MG/ML inj IVP (16:10)
[2023-02-16] MEDS: ACETAMINOPHEN 325 MG TABLET 650 MG PO (16:10)
== END 2023-02-16 17:03 | disposition home or self-care (01) ==
PROVIDERS: PCP Family Medicine; Visit Provider Surgery
PROC: 0FT44ZZ Resection of Gallbladder, Percutaneous Endoscopic Approach (ICD-10-PCS; CPT 47562; principal; 2023-02-16 14:00)
DX: K81.1 Chronic cholecystitis (principal)
CPT/HCPCS: 47562; 00790; 81025; 88304; A9270; J0665; J0690; J1100; J1200; J1885; J2250; J2405; J2710; J3010; J7120

== ENCOUNTER 2023-07-21 14:47 | Outpatient (CLI) | payer OTHER, SELFPAY ==
--- OUTSIDE RECORDS SUMMARY | 2023-07-21 15:00 | XMS_ITS | Clinical Summary ---
Author Name Unknown Organization [facility] Address [address] [place] [address] Care Team Providers Care Home Insurance Agent Name Role Phone Needs Pcp, Assignment Primary Care Provider [phone] Source Comments You are receiving this document as you are listed as the primary care provider,follow-up provider, or the patient has been referred to you for consultation.This is in compliance with the Medicare and[facility] EHR Incentive Program,which states Providers who transition their patient to another setting of careor provider of care or refers their patient to another provider of care shouldprovide summary care record for each transition of care or referral. [facility] Allerg[facility] Active Allergy Reactions Criticality Noted Date Comments Vancomycin Other, see comments 02/10/2011 Swelling, itching, rash Medications Medication Sig Dispensed Refills Start Date End Date Status polyethylene glycol 3350 (AKA GLYCOLAX) powder Take 17 g by mouth daily. . 527 g 2 02/10/2011 Active ibuprofen (MOTRIN) 800 MG tablet Take 800 mg by mouth every 8 hours as needed for Pain. Active methocarbamol (ROBAXIN) 750 MG tablet Take 1-2 po q 6 hrs prn spasm 32 Tab 0 06/08/2016 Active HYDROcodone-acetaminop hen (NORCO) 5-325 MG tablet Take 1-2 Tabs by mouth every 6 hours as needed for Pain. 20 Tab 0 06/08/2016 Active Active Problems No known active problems Immunizations Name Administration Dates Next Due Tdap 05/07/2008 Family History Medical History Relation Name Comments Cancer, Ovary Sister 2 Relation Name Status Comments Father Alive Mother Alive Brother Alive x1 L&W Daughter Alive x1 L&W Sister 1 Alive x3 L&W Sister 2 Social History Tobacco Use Types Packs/Day Years Used Date Smoking Tobacco: Never Smokeless Tobacco: Never Alcohol Use Standard Drinks/Week Comments Yes 0.8 (1 standard drink = 0.6 oz p ure alcohol) Sex and Gender Information Value Date Recorded Sex Assigned at Not on file Gender Identity Not on file Sexual Orientation Not on file Last Filed Vital Signs Vital Sign Reading Time Taken Comments Blood Pressure 109/76 06/08/2016 2:47 PM LOGISTICS SUPERVISOR Pulse 55 06/08/2016 2:47 PM LOGISTICS SUPERVISOR Temperature 36.6 ??C (97.9 ??F) 06/08/2016 12:[address] Respiratory Rate 16 06/08/2016 12:22 PM LOGISTICS SUPERVISOR Oxygen Saturation - - Inhaled Oxygen Concentration - - Weight 86.2 kg (190 lb) 02/10/2011 2:50 PM LOGISTICS SUPERVISOR Height 172.7 cm (5' 8) 02/10/2011 2:50 PM LOGISTICS SUPERVISOR Body Mass Index 28.89 02/10/2011 2:50 PM LOGISTICS SUPERVISOR Plan of Treatment Health Maintenance Due Date Last Done Comments Hep C Screening (Preventive Services) 1982 HIV Screening (Preventive Services) 1998 Adult Preventive Visit 2000 HepB (1) 2001 Cervical Cancer Screening Due 12/07/2010 12/06/2010 DTaP/Tdap/Td (2 - Tdap) 05/07/2018 05/07/2008 COVID-19 Vaccine ( - 2022-2 4 season) 2022 Influenza (#1) 2022 Zoster/Shingles (1 of 2) 2032 HPV Vaccine Aged Out No longer eligi ble based on patient's age to complete this topic HepA Aged Out No longer eligi ble based on patient's age to complete this topic Hib Aged Out No longer eligi ble based on patient's age to complete this topic IPV (Polio) Aged Out No longer eligi ble based on patient's age to complete this topic MCV4 Aged Out No longer eligi ble based on patient's age to complete this topic Pneumococcal Aged Out No longer eligi ble based on patient's age to complete this topic Procedures Procedure Name Priority Date/Time Associated Diagnosis Comments PAP TEST-ROUTINE 12/06/2010 12:0 0 AM CDT from Last 3 Months or Most Recently Relevant to Health Maintenance Results * PAP TEST-ROUTINE (12/06/2010 12:00 AM CDT) 12/06/2010 Narrative Transcriptions [facility], PROVIDER - 12/06/2010 12:00 AM CDT Physician Unknown [email or web address] from Last 3 Months or Most Recently Relevant to Health Maintenance Care Teams Home Insurance Agent Relationship Specialty Start Date End Date Needs Pcp, [place] [address] PCP - General 06/08/16
--- OUTSIDE RECORDS SUMMARY | 2023-07-21 15:00 | XMS_ITS | Clinical Summary ---
Author Name Unknown Organization [facility] Address [place], [place] [address] Care Team Providers Care Substitute Teacher Name Role Phone Johny Davis MD Primary Care Provider [phone] , No Primary Unavailable Unavailable Allergies Active Allergy Reactions Criticality Noted Date Comments Vancomycin Anaphylaxis High 11/05/2016 Medications Medication Sig Dispensed Refills Start Date End Date Status Qnbgaamh-Wz-Etj-Fe -FA ( VITAMIN) tab tabletIndications: Encounter for supervision of other normal Take 1 tablet by mouth once daily. 0 11/05/2016 Active VENTOLIN HFA 90 mcg/actuation inhaler 09/09/2016 Active Breast Pump - PurchaseIndication s:History of 2 sections,Supervisi on of high risk in third trimester For home use. Gestation age at delivery: term. Reason for need: maternal infant separation . Length of need: 12 months 1 unit 04/23/2017 Active escitalopram oxalate (LEXAPRO) 10 mg tabletIndications: History of 2 sections Take 1 tablet by mouth every morning. 30 tablet 5 06/28/2017 Active acetaminophen (TYLENOL) 325 mg tabletIndications: Supervision of high risk in third trimester Take 1-2 tablets by mouth every 4 hours if needed (mild pain). Max acetaminophen dose: 4000mg in 24 hrs. 100 tablet 06/28/2017 Active ibuprofen (MOTRIN IB) 200 mg tabletIndications: Supervision of high risk in third trimester Take 1-3 tablets by mouth every 6 hours if needed for Other (Specify) (for uterine cramping). Take with food. 100 tablet 06/28/2017 Active Active Problems Problem Noted Date Diagnosed Date Acute superficial venous thr ombosis of lower extremity, right 06/04/2017 Dermoid cyst of ovary 05/06/2017 Supervision of high risk in third trim carol 01/01/2017 History of 2 sections 01/01/2017 Dermoid cyst of ovary 01/01/2017 Family history of spina bifida 01/01/2017 Encounter for supervision of normal in multigravida, antepartum 11/05/2016 H/O section complicating 05/2016 Mild intermittent asthma without complication Immunizations Name Administration Dates Next Due Influenza, IIV4 (=>6mos) MDV 01/01/2017 Tdap 04/01/2017,05/07/2008 Family History Medical History Relation Name Comments Lymphoma Maternal Grandmother Relation Name Status Comments Maternal Grandmother Social History Tobacco Use Types Packs/Day Years Used Date Smoking Tobacco: Former Smokeless Tobacco: Never Alcohol Use Standard Drinks/Week Comments Yes 0 (1 standard drink = 0.6 oz pur e alcohol) not during PHQ-2 Answer Date Recorded PHQ-2 Score 0 06/08/2018 Sex and Gender Information Value Date Recorded Sex Assigned at Not on file Gender Identity Not on file Sexual Orientation Not on file Obstetrics History Para Term AB IAB SAB Ectopic Multiple Livin g Live Births 3 3 3 0 0 0 0 0 3 3 Date Outcome GA Total Labor Labor/2nd/3rd Weight Sex Delivery Anes PTL Sho A1 A5 Name Cl in 09/25 Term 40w 0d F Shreya ng 01/24 Term 40w 0d M Shreya ng 06/26 Term 39w 2d 3.52 kg (7 lb 12.2 oz) M Spina l Shreya ng 7 9 STEVEN, BB STAN Maya Delivery Location:[facility]) Last Filed Vital Signs Vital Sign Reading Time Taken Comments Blood Pressure 98/68 08/10/2017 10:59 AM CDT Pulse 64 08/10/2017 10:59 AM CDT Temperature 37 ??C (98.6 ??F) 06/28/2017 12: 00 AM CDT Respiratory Rate 16 06/28/2017 8:49 AM CDT Oxygen Saturation 97% 06/28/2017 8:49 AM CDT Inhaled Oxygen Concentration - - Weight 85.2 kg (187 lb 14.4 oz) 018 10:59 AM CDT Height 172.7 cm (5' 7.99) 08/10/2017 1 0:59 AM CDT Body Mass Index 28.58 08/10/2017 10:59 AM CDT Plan of Treatment Health Maintenance Due Date Last Done Comments Hepatitis C screening for ag e 18-79 2000 BMI (ht and wt on same day) for age 18+ 08/10/2018 08/10/2017, 04/23/2017, 11/05/2016 Depression screening for age 12+ 08/10/2018 08/10/2017, 01/01/2017 Pap test for age 21-65 03/17/2021 8, 03/17/2018, 11/05/2016 COVID-19 vaccine series (2022-24 season) 2022 Influenza for age 9-49 12/06/2023 01/01/2017 Tetanus booster 04/01/2027 04/01/2017, 05/07/2008 HIV for age 15-65 Completed 11/05/2016 Tdap Completed 04/01/2017, 05/07/2008 Pneumococcal series for age 6-64 Aged Out No longer eligible b ased on patient's age to complete this topic Procedures Procedure Name Priority Date/Time Associated Diagnosis Comments EXECUTIVE SALES MANAGER THIN PREP PAP SCREEN IMAGED Routine 03/17/2018 12:00 PM SOURCE INSPECTOR ANTI HIV 1/2 Routine 11/05/2016 12:25 PM CDT Encounter for supervision of other normal from Last 3 Months or Most Recently Relevant to Health Maintenance Results * EXECUTIVE SALES MANAGER THIN PREP PAP SCREEN IMAGED (03/17/2018 12:00 PM SOURCE INSPECTOR) Case Report Gynecologic Cytology Report ? Case: [id number] ? Authorizing Provider: ??Ainsley Dean ?Collected: ? 03/17/2018 1200 ? MD Cesilia ? First Screen: ?Kat Llamas ?Received: ?03/18/2018 1236 ? Pathologist: ? Susi Mayo MD ? Specimen: ?EXECUTIVE SALES MANAGER ThinPrep Vial Screening, Cervical/Vaginal ? 03/29/2018 1:08 PM [facility] [employer] LABORATORY-C ENTRAL LABORATORY INTERPRETATION/ RESULT NEGATIVE FOR INTRAEPITHELIAL LESION OR MALIGNANCY (NIL) (none) 03/29/2018 1:08 PM [facility]TRAL LABORATORY R NON-NEOPLASTIC FINDING(S) Reactive cellular changes, probably 03/29/2018 1:08 PM [facility]-C ENTRAL LABORATORY SPECIMEN ADEQUACY Satisfactory for evaluation Endocervical component present 03/29/2018 1:08 PM [facility] LABORATORY-C ENTRAL LABORATORY HPV REQUEST HPV and PAP 03/29/2018 1:08 PM [facility] LABORATORY-C ENTRAL LABORATORY Date of LMP 03/10/2018 03/29/2018 1:08 PM SOURCE INSPECTOR [facility] ENTRAL LABORATORY Menstrual Status 03/29/2018 1:08 PM SOURCE INSPECTOR [facility] ENTRTN LABORATORY Automated Review Successful 03/29/2018 1:08 PM SOURCE INSPECTOR [facility]TN LABORATORY Comment:Specimen processed s uccessfully by automated podiatry doctor device, LexdirPrep Imaging System, [employer] ANCILLARY TESTING EXECUTIVE SALES MANAGER HPV Ordered, Please see separate report 03/29/2018 1:08 PM SOURCE INSPECTOR [facility] LABORATORY Note The pap test is a screening technique, not a diagnostic procedure. ??It is used primarily to screen for squamous cancers and precursor lesions. ??Published studies have shown that it is subject to both false negative and false positive results. ??The pap test should not be used as the sole means to diagnose or exclude pre-malignant and malignant lesions. Cytology is screened and interpreted at [facility] - [address], [place] [address] and [facility] - [address]; [place] [address] and [facility] - [address]; [place] [address] and [facility] [address]; [place] [address] 03/29/2018 1:08 PM SOURCE INSPECTOR [facility] ENTRTN LABORATORY Other (Cervical/Vagina l) 03/17/2018 12:00 PM SOURCE INSPECTOR 03/18/2018 12:36 PM SOURCE INSPECTOR Ainsley Dean MD PATHOLOGY/ CYTOLOGY [facility] LABORATORY [address] [place] [address], * ANTI HIV 1/2 (11/05/2016 12:25 PM CDT) HIV-1/HIV-2 ANTIBODY Non-Reacti ve Non-Reacti ve 11/05/2016 7:20 PM CDT [facility] TRAL LABORATORY Blood BLOOD SPECIMEN / Unknown Venipuncture / Unknown 11/05/2016 12:25 PM CDT 11/05/2016 12:25 PM CDT Narrative [facility] LABORATORY-CENTRAL LABORATORY - 11/05/2016 7:20 PM CDT HIV-1 p24 and HIV-1/HIV-2 Ab not detected Janet Fitzgerald UTILITY LOCATE TECHNICIAN SEND OUTS [facility]-CENTRAL LABORATORY [address] [place] [address], from Last 3 Months or Most Recently Relevant to Health Maintenance Advance Directives * Full Code (Latest Code Status on File) Date Activated Date Inactivated Comments 06/26/2017 5:56 AM 06/28/2017 2:24 PM Question Answer Comments Code Status Discussion: Discussed Care Teams Substitute Teacher Relationship Specialty Start Date End Date Johny Davis MD PCP - General Family Practice 05/31/17 , No Primary . 10/31/16
== END 2023-07-21 14:48 | disposition home or self-care (01) ==
LOC: LKVREF 14:57
PROVIDERS: PCP Family Medicine; Visit Provider Family Medicine
DX: Z13.220 Encounter for screening for lipoid disorders (principal)
CPT/HCPCS: 80061

== ENCOUNTER 2023-08-21 10:24 | Outpatient (CLI) | payer OTHER, SELFPAY ==
--- NOTE | 2023-08-21 10:15 | MM_ITS ---
Patient: DANIELLE HARRIS Facility:?[facility] Patient ID:?[id number] Site Patient ID:?[id number]. Site :?[id number] Study:?XRay-Breast Bilateral 3D W/CAD-08/21/2023 10:52:29 AM Ordering Physician:Tosha Final Report: BILATERAL SCREENING MAMMOGRAM WITH COMPUTER-AIDED DETECTION AND TOMOSYNTHESIS TECHNIQUE: CC and MLO views were obtained. These mammographic images have been obtained using full-field digital technique. These mammographic images were interpreted with the benefit of computer-aided detection. Breast Tomosynthesis was used in this interpretation. COMPARISON FILM: Baseline. FINDINGS: The breasts are heterogeneously dense, which may obscure small masses. IMPRESSION: There is no radiographic evidence for malignancy. ASSESSMENT: BI-RADS Category 2: Benign RECOMMENDATION: Routine screening mammogram in 1 year. A lay language report of this examination will be provided to the patient. Jairo Larson M.D. Diagnostic Radiologist [employer] [facility] [email or web address] DSM/sp R& Transcribed: 5:52 p.m. SP/Dictated by: Jairo Larson MD @ 08/24/2023 10:35:00 AM Signed by:?Jairo Larson MD @08/24/2023 8:47:27 PM (Electronic Signature)
--- OUTSIDE RECORDS SUMMARY | 2023-08-21 10:40 | XMS_ITS | Clinical Summary ---
Author Name Unknown Organization [facility] Address [address] [place] [address] Care Team Providers Care Certified Technician Specialist Name Role Phone Needs Pcp, Assignment Primary Care Provider [phone] Source Comments You are receiving this document as you are listed as the primary care provider,follow-up provider, or the patient has been referred to you for consultation.This is in compliance with the Medicare andOhiohealth Grove City Methodist Hospitalcaid EHR Incentive Program,which states Providers who transition their patient to another setting of careor provider of care or refers their patient to another provider of care shouldprovide summary care record for each transition of care or referral. [facility] Allergies Active Allergy Reactions Criticality Noted Date [...] Comments Blood Pressure 109/76 06/08/2016 2:47 PM SOFTWARE DEVELOPER MANAGER Pulse 55 06/08/2016 2:47 PM SOFTWARE DEVELOPER MANAGER Temperature 36.6 ??C (97.9 ??F) 06/08/2016 12:[address] Respiratory Rate 16 06/08/2016 12:22 PM SOFTWARE DEVELOPER MANAGER Oxygen Saturation - - Inhaled Oxygen Concentration - - Weight 86.2 kg (190 lb) 02/10/2011 2:50 PM SOFTWARE DEVELOPER MANAGER Height 172.7 cm (5' 8) 02/10/2011 2:50 PM SOFTWARE DEVELOPER MANAGER Body Mass Index 28.89 02/10/2011 2:50 PM SOFTWARE DEVELOPER MANAGER Plan of Treatment Health Maintenance Due Date Last Done Comments Hep C Screening (Preventive Services) 1982 HIV Screening (Preventive Services) 1998 Adult Preventive Visit 2000 HepB (1) 2001 Cervical Cancer Screening Due 12/07/2010 12/06/2010 DTaP/Tdap/Td (2 - Tdap) 05/07/2018 05/07/2008 COVID-19 Vaccine ( - 2022-2 4 season) 2022 Influenza (Season Ended) 2023 Zoster/Shingles (1 of 2) 2032 HPV Vaccine [...] (12/06/2010 12:00 AM CDT) 12/06/2010 Narrative Transcriptions [facility], PROVIDER - 12/06/2010 12:00 AM CDT Physician Unknown LAB_1 from Last 3 Months or Most Recently Relevant to Health Maintenance Care Teams Certified Technician Specialist Relationship Specialty Start Date End Date Needs Pcp, [place] [address] PCP - General 06/08/16
--- OUTSIDE RECORDS SUMMARY | 2023-08-21 10:40 | XMS_ITS | Clinical Summary ---
Author Name Unknown Organization [facility] Address [place], [place] [address] Care Team Providers Care Division Superintendent Name Role Phone Johny Davis MD Primary Care Provider [phone] , No Primary Unavailable Unavailable Allergies Active Allergy Reactions Criticality Noted Date Comments Vancomycin Anaphylaxis High 11/05/2016 Medications Medication Sig Dispensed Refills Start Date End Date Status Aushrfhj-Iw-Mut-Fe -FA ( VITAMIN) tab tabletIndications: Encounter for supervision of other normal Take 1 tablet by mouth once daily. 0 11/05/2016 Active VENTOLIN HFA 90 mcg/actuation inhaler 09/09/2016 Active Breast Pump - PurchaseIndication s:History of 2 sections,Supervisi on of high risk in third trimester For home use. Gestation age at delivery: term. Reason for need: maternal separation . Length of need: 12 months [...] complicating 05/2016 Mild intermittent asthma without complication Encounters Date Type Department Care Team Description 07/22/2023 Lab Requisition [facility] CENTRAL LAB [phone] Unknown, Doctor from Last 3 Months Immunizations Name Administration Dates Next Due Influenza, [...] Spina l Shreya ng 7 9 STEVEN, LOWELL Maya Delivery Location:[facility] ([facility]) Last Filed Vital Signs Vital [...] Last Done Comments Hepatitis C screening for age 18-79 2000 BMI (ht and wt on same day) for age 18+ 08/10/2018 08/10/2017, 04/23/2017, 11/05/2016 Depression screening for age 12+ 08/10/2018 08/10/2017, 01/01/2017 COVID-19 vaccine series (2022-24 season) 2022 Influenza for age 9-49 12/06/2023 01/01/2017 Pap test for age 21-65 07/20/2026 , 07/21/2023, 03/17/2018, Additional history exists Tetanus booster 04/01/2027 04/01/2017, 05/07/2008 HIV for age 15-65 Completed 11/05/2016 Tdap Completed 04/01/2017, 05/07/2008 Pneumococcal series for age 6-64 Aged Out No longer eligible based on patient's age to complete this topic Procedures Procedure Name Priority Date/Time Associated Diagnosis Comments LAB TRACKING EVENT Routine 07/21/2023 3: 05 PM CDT RETAIL SALES LEAD THIN PREP PAP SCREEN IMAGED Routine 07/21/2023 3:05 PM CDT HPV THIN PREP Routine 07/21/2023 3:05 PM CDT ANTI HIV 1/2 Routine 11/05/2016 12:25 PM CDT Encounter for supervision of other normal from Last 3 Months or Most Recently Relevant to Health Maintenance Results * LAB TRACKING EVENT (07/21/2023 3:05 PM CDT) Other (Other) Client Collect / Unknown 07/21/2023 3:05 PM CDT 07/22/2023 3:45 PM CDT Doctor Unknown LAB BILL ONLY [facility]AL LABORATORY [address] [place] [address], * RETAIL SALES LEAD THIN PREP PAP SCREEN IMAGED (07/21/2023 3:05 PM CDT) Case Report Gynecologic Cytology Report ? Case: [id number] ? Authorizing Provider: ??Unknown, Doctor ?Collected: ? 07/21/2023 1505 ? Ordering Location: ? [facility] CENTRAL LAB ?Received: ?07/23/2023 1039 ? First Screen: ?Meggan, Yifan ? Specimen: ?RETAIL SALES LEAD ThinPrep Vial Screening, Cervical ? 08/05/2023 7:56 AM CDT [facility] LABORATORY-C ENTRAL LABORATORY INTERPRETATION/ RESULT NEGATIVE FOR INTRAEPITHELIAL LESION OR MALIGNANCY (NIL) (none) 08/05/2023 7:56 AM CDT [facility] IMEN ADEQUACY Satisfactory for evaluation No endocervical component seen 08/05/2023 7:56 AM CDT [facility] ENTRAL LABORATORY HPV REQUEST HPV and PAP 08/05/2023 7:56 AM CDT [facility] ENTRAL LABORATORY Date of LMP 07/06/2023 08/05/2023 7:56 AM CDT [facility] ENTRAL LABORATORY Last Pap Date 08/05/2023 7:56 AM CDT [facility] ENTRAL LABORATORY Comment:2018 Last Pap Result NIL 7:56 AM CDT [facility] ENTRAL LABORATORY Abnormal Pap or [place] Bx in last 5 years No 08/05/2023 7:56 AM CDT [facility] ENTRAL LABORATORY Menstrual Status Regular Periods 08/05/2023 7:56 AM CDT [facility] ENTRAL LABORATORY [place] Bx Done Today No 08/05/2023 7:56 AM CDT [facility] ENTRAL LABORATORY Additional Information 08/05/2023 7:56 AM CDT [facility] ENTRAL LABORATORY Comment: Interpreted at [facility] - [address] [place] [address], [place] [address] Automated Review Successful 08/05/2023 7:56 AM CDT [facility] ENTRAL LABORATORY Comment:Specimen processed s uccessfully by automated enrollment coordinator device, ThinPrep Imaging System, [employer] ANCILLARY TESTING RETAIL SALES LEAD HPV Ordered, Please see separate report 08/05/2023 7:56 AM CDT [facility] ENTRAL LABORATORY Note The pap test is a screening technique, not a diagnostic procedure. It is used primarily to screen for squamous cancers and precursor lesions. Published studies have shown that it is subject to both false negative and false positive results. The pap test should not be used as the sole means to diagnose or exclude pre-malignant and malignant lesions. 08/05/2023 7:56 AM CDT [facility] ENTRAL LABORATORY Other (Cervical) 07/21/2023 3:05 PM CDT 07/23/2023 10:39 AM CDT Doctor Unknown PATHOLOGY/CYTOLOGY Performing Organization Address City/[facility]/ZIP Co de Phone Number [facility] [address] [place] [address] * HPV HIGH RISK (07/21/2023 3:05 PM CDT) TYPE 16 Negative Negative 07/24/2023 11:37 AM CDT [facility] TRAL LABORATORY TYPE 18 Negative Negative 07/24/2023 11:37 AM CDT [facility] TRAL LABORATORY OTHER HIGH RISK TYPES Negative Negative 07/24/2023 11:37 AM CDT [facility] TRA LABORATORY Other (Cervical) 07/21/2023 3:05 PM CDT 07/23/2023 10:39 AM CDT Narrative [facility] - 07/24/2023 11:37 AM CDT HPV types 16, 18, 31, 33, 35, 39, 45, 51, 52, 56, 58, 59, 66 and 68 DNA were undetectable or below the pre-set threshold. Methodology: Gloria Joanie 4800 HPV Test Doctor Unknown MICROBIOLOGY Performing Organization Address [facility] Co de Phone Number [facility] [address] [place] [address] * ANTI HIV 1/2 (11/05/2016 12:25 PM CDT) HIV-1/HIV-2 ANTIBODY Non-Reacti ve Non-Reacti ve 11/05/2016 7:20 PM CDT [facility] TRA LABORATORY Blood BLOOD SPECIMEN / Unknown Venipuncture / Unknown 11/05/2016 12:25 PM CDT 11/05/2016 12:25 PM CDT Narrative [facility] - 11/05/2016 7:20 PM CDT HIV-1 p24 and HIV-1/HIV-2 Ab not detected Janet Fitzgerald CARE AID SEND OUTS Performing Organization Address City/[facility]/ZIP Co de Phone Number [facility] LABORATORY-CENTRAL LABORATORY [address] [place] [address], [place] from Last 3 Months or Most Recently Relevant to Health Maintenance Advance Directives * Full Code (Latest Code Status on File) Date Activated Date Inactivated Comments 06/26/2017 5:56 AM 06/28/2017 2:24 PM Question Answer Comments Code Status Discussion: Discussed Care Teams Division Superintendent Relationship Specialty Start Date End Date Johny Davis MD PCP - General Family Practice 05/31/17 , No Primary . 10/31/16
== END 2023-08-21 10:25 | disposition home or self-care (01) ==
LOC: MAMMO 10:26
PROVIDERS: PCP Family Medicine; Visit Provider Family Medicine
DX: Z12.31 Encounter for screening mammogram for malignant neoplasm of breast (principal); R92.2 Inconclusive mammogram
CPT/HCPCS: 77063; 77067

== ENCOUNTER 2024-05-30 15:04 | Outpatient (CLI) | payer OTHER, SELFPAY | END 2024-05-30 15:05 | disposition home or self-care (01) | PROVIDERS: PCP Family Medicine; Visit Provider Family Medicine | DX: N95.9 Unspecified menopausal and perimenopausal disorder (principal); R10.11 Right upper quadrant pain | CPT/HCPCS: 80076; 83690 ==

== ENCOUNTER 2024-06-02 09:56 | Outpatient (CLI) | payer OTHER, SELFPAY | END 2024-06-02 09:57 | disposition home or self-care (01) | LOC: US 09:56 | PROVIDERS: PCP Family Medicine; Visit Provider Family Medicine | DX: R10.11 Right upper quadrant pain (principal) | CPT/HCPCS: 76705 ==

== ENCOUNTER 2024-06-02 11:46 | Outpatient (CLI) | payer OTHER, SELFPAY ==
[2024-06-02 16:03] LABS: Bacterial Vaginosis* Negative (Negative); Candida glab/krus NOT DETECTED (No Detected); Candida species NOT DETECTED (No Detected); Trichomonas vaginalis NOT DETECTED (No Detected)
[2024-06-02 16:34] LABS: Chlamydia DNA Amplified* NOT DETECTED (No Detected); GC DNA Amplified* NOT DETECTED (No Detected)
== END 2024-06-02 11:47 | disposition home or self-care (01) ==
PROVIDERS: PCP Family Medicine; Visit Provider Physician Assistant
DX: Z11.3 Encounter for screening for infections with a predominantly sexual mode of transmission (principal)
CPT/HCPCS: 80074; 81513; 84443; 86592; 86703; 87481; 87491; 87591; 87661

== ENCOUNTER 2024-06-09 10:26 | Outpatient (CLI) | payer MEDICAID, SELFPAY ==
--- NOTE | 2024-06-09 10:15 | CRLHL7_ITS ---
For Patients: As a result of the Century Cures Act, medical imaging exams and procedure reports are released immediately into your electronic medical record. You may view this report before your referring provider. If you have questions, please contact your health care provider. INDICATION: Breakthrough bleeding with IUD, irregular cycles and heavy bleeding COMPARISON: none TECHNIQUE: 2D merino scale and color Doppler images were acquired of the pelvis using a transabdominal and transvaginal approach. FINDINGS: Sonographic images demonstrate a normal size and smooth outer contour of the uterus. Uterus measures 9.8 cm in length by 4.3 cm in AP diameter by 5.5 cm in transverse dimension. The myometrium has a normal uniform echotexture. The endometrium is not thickened. IUD is present. The right arm appears to extend into the adjacent myometrium. A circumscribed heterogeneous left adnexal mass is present measuring 7.1 x 5.9 x 6.0 cm. No internal blood flow. Circumscribed complex right adnexal mass is also present measuring 5.9 x 3.7 x 5.3 cm without significant internal blood flow. Normal ovarian tissue is not visualized bilaterally. No pelvic free fluid. IMPRESSION: IUD is present within the fundal endometrium with the right arm possibly extending into the adjacent myometrium. The endometrial stripe is not thickened. Complex essentially nonvascular bilateral solid-appearing adnexal masses, presumably ovarian in origin, measuring 5.9 cm on the right and 7.1 cm on the left. Pelvic MRI recommended for further evaluation. Dictated by Jairo Larson MD @ 06/09/2024 11:56:18 AM (Electronically Signed)
== END 2024-06-09 10:27 | disposition home or self-care (01) ==
LOC: US 10:27
PROVIDERS: PCP Family Medicine; Visit Provider Physician Assistant
DX: N92.1 Excessive and frequent menstruation with irregular cycle (principal); R19.00 Intra-abdominal and pelvic swelling, mass and lump, unspecified site; Z97.5 Presence of (intrauterine) contraceptive device
CPT/HCPCS: 76830; 76856

== ENCOUNTER 2024-06-10 13:30 | Outpatient (CLI) | payer MEDICAID, SELFPAY | END 2024-06-10 13:31 | disposition home or self-care (01) | LOC: NFLDREF 06-14 05:51 | PROVIDERS: PCP Family Medicine; Referring Provider Family Medicine; Visit Provider Physician Assistant | DX: N94.89 Other specified conditions associated with female genital organs and menstrual cycle (principal) | CPT/HCPCS: 82378; 86301; 86304 ==

== ENCOUNTER 2024-06-30 13:40 | Outpatient (CLI) | payer MEDICAID, SELFPAY | END 2024-06-30 13:41 | disposition home or self-care (01) | LOC: NFLDREF 07-01 03:30 | PROVIDERS: PCP Family Medicine; Referring Provider Family Medicine; Visit Provider Family Medicine | DX: R74.8 Abnormal levels of other serum enzymes (principal); Z11.59 Encounter for screening for other viral diseases | CPT/HCPCS: 80076; 83690; 86663; 86664; 86665 ==

== ENCOUNTER 2024-09-23 23:08 | Emergency (ER) | payer BC, SELFPAY ==
--- OUTSIDE RECORDS SUMMARY | 2024-09-23 23:11 | XMS_ITS | Encounter Summary ---
Author Organization [facility] Address [address] [place] [address]. [place] [address] Care Team Providers Care Millinery Designer Name Role Phone Hipolito Kelly MD Primary Care Provider [phone] Zainab Campuzano INSERT CUTTER Unavailable [phone] Zainab Campuzano INSERT CUTTER Unavailable [phone] Jessie Mast MD Unavailable [phone] July Unavailable Trish Vincent PA-C Primary Care Provider + Jessie Mast MD Unavailable [phone] Reason for Visit * Reason Onset Date Comments MyChart Communication 10/28/2016 Encounter Details Date Type Department Care Team (Late st Contact Info) Description 10/28/2016 MyC Medical Advice M [address] [id number] Zainab Campuzano, JANE [address] [address] MyChart Communication Social History Tobacco Use Types Packs/Day Years Used Date Smoking Tobacco: Former Cigarettes Smokeless Tobacco: Never Comments:pt quit 11/04/2004 Alcohol Use Standard Drinks/Week Comments Yes 0 (1 standard drink = 0.6 oz pur e alcohol) 3 times a week currently Comments No Sex and Gender Information Value Date Recorded Sex Assigned at Not on file Legal Sex Female 4:23 AM REST ROOM MAID Gender Identity Not on file Sexual Orientation Not on file documented as of this encounter Plan of Treatment Scheduled Procedures Name Priority Associated Diagnoses Date/Ti me SALPINGO-OOPHORECTOMY, LAPAROSCOPIC Adnexal mass REMOVAL, INTRAUTERINE DEVICE Adnexal mass documented as of this encounter Visit Diagnoses Not on filedocumented in this encounter Care Teams Millinery Designer Relationship Specialty Start Date End Date Hipolito Kelly MD [address] [place] [address] PCP - General 10/16/01 06/15/24 Zainab Campuzano, INSERT CUTTER [address] [place] [address] PCP - Assigned PCP 08/14/16 06/08/18 Trish Vincent PA-C [address] [place] [address] PCP - General Family Medicine 06/16/24 Zainab Campuzano, INSERT CUTTER [address] [place] [address] Assigned PCP 08/14/16 09/10/19 Jessie Mast MD [address] [place] [id number] Gynecologic Oncology 06/13/[address] [address] Physician Baseball Hand Sewer 06/13/24 Jessie Mast MD [address] [place] [address] Assigned Cancer Care Provider 06/26/24 documented as of this encounter
--- OUTSIDE RECORDS SUMMARY | 2024-09-23 23:11 | XMS_ITS | Encounter Summary ---
Author Organization [place] Address [address] [place] [address]. [place] [address] Care Team Providers Care Mid Level Business Analyst Name Role Phone Hipolito Kelly MD Primary Care Provider [phone] Zainab Campuzano [employer] Unavailable [phone] Zainab Campuzano [employer] Unavailable [phone] Jessie Mast MD Unavailable [phone] July Unavailable Trish Vincent PA-C Primary Care Provider + Jessie Mast MD Unavailable [phone] Reason for Visit * Reason Onset Date Comments MyChart Communication 09/10/2016 Encounter Details Date Type Department Care Team (Late st Contact Info) Description 09/10/2016 MyC Medical Advice [address] [phone] Zainab Campuzano, JANE [address] [place] [address] MyChart Communication Social History Tobacco Use Types Packs/Day Years Used Date Smoking Tobacco: Former Cigarettes Smokeless Tobacco: Never Comments:pt quit 11/04/2004 Alcohol Use Standard Drinks/Week Comments Yes 0 (1 standard drink = 0.6 oz pur e alcohol) 3 times a week currently Comments No Sex and Gender Information Value Date Recorded Sex Assigned at Not on file Legal Sex Female 4:23 AM LABORER DEMOLITION Gender Identity Not on file Sexual Orientation Not on file documented as of this encounter Miscellaneous Notes * Telephone Encounter - Debbie Jauregui RN - 09/10/2016 1:57 PM CDT Please advise on how you would like to proceed Debbie Jauregui RN, BSN documented in this encounter Plan of Treatment Scheduled Procedures Name Priority Associated Diagnoses Date/Ti me SALPINGO-OOPHORECTOMY, LAPAROSCOPIC Adnexal mass REMOVAL, INTRAUTERINE DEVICE Adnexal mass documented as of this encounter Visit Diagnoses Diagnosis Localized superficial swelling, mass, or lump- Primary documented in this encounter Care Teams Mid Level Business Analyst Relationship Specialty Start Date End Date Hipolito Kelly MD [address] [place] [address] PCP - General 10/16/01 06/15/24 Zainab Campuzano [facility] [employer] [address] [place] [address] PCP - Assigned PCP 08/14/16 06/08/18 Trish Vincent PA-C [address] [place] [address] PCP - General Family Medicine 06/16/24 Zainab Campuzano [employer] [facility] [address] [facility] [place] [address] Assigned PCP 08/14/16 09/10/19 Jessie Mast MD [address] [place] [address] Gynecologic Oncology 06/13/24 Davy July [facility] [address] [place] [address] Physician Scorer Single 06/13/24 Jessie Mast MD [address] [place] [address] Assigned Cancer Care Provider 06/26/24 documented as of this encounter
--- OUTSIDE RECORDS SUMMARY | 2024-09-23 23:11 | XMS_ITS | CCD ---
Author Name Interface, [facility] Address [address] [place], [place] [id number] Organization [facility] Address [address] [place] [address] Care Team Providers Care Non Destructive Testing Scientist Name Role Phone Cheyenne Wright Unavailable Unavailable Care Plan Reason for Visit Encounters Diagnostic Results Social History
--- OUTSIDE RECORDS SUMMARY | 2024-09-23 23:11 | XMS_ITS | Encounter Summary ---
Author Organization [place] Address [facility] [place] [address] Care Team Providers Care Machinery Mechanic Name Role Phone Jessie Mast MD Unavailable July Unavailable Trish Vincent PA-C Primary Care Provider + Jessie Mast MD Unavailable [phone] Encounter Details Date Type Department Care Team (Late st Contact Info) Description 08/16/2024 [facility] [address] [place] [address] [facility] [place] [phone] Lanette Ashley RN Social History Tobacco Use Types Packs/Day Years Used Date Smoking Tobacco: Every Day Cigarettes Smokeless Tobacco: Never Comments:pt quit 11/04/2004 Alcohol Use Standard Drinks/Week Comments Yes 0 (1 standard drink = 0.6 oz pur e alcohol) 3 times a week currently Adolescent Education Answer Date Record ed Getting School Help Needed Not on file 01/12 Comments No Sex and Gender Information Value Date Recorded Sex Assigned at Not on file Legal Sex Female 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 Dr Verdugo notified and aware. Lanette Ashley, RN, BSN, OCN documented in this encounter Plan of Treatment Scheduled Procedures Name Priority Associated Diagnoses Date/Ti me SALPINGO-OOPHORECTOMY, LAPAROSCOPIC Adnexal mass REMOVAL, INTRAUTERINE DEVICE Adnexal mass documented as of this encounter Goals Goal Patient Goal Type Associated Problems Recent Progress Patient-Stated? Author MYC ECC SURG ENROLL Care Plan MyC ECC SURG ENROLL No Dannielle Harp documented as of this encounter Visit Diagnoses Not on filedocumented in this encounter Additional Health Concerns Active Problems Noted Date Diagnosed Date MyC ECC SURG ENROLL 06/23/2024 documented as of this encounter Care Teams Machinery Mechanic Relationship Specialty Start Date End Date Trish Vincent PA-C [address] [place] [address] PCP - General Family Medicine 06/16/24 Jessie Mats MD [address] [place] [address] Gynecologic Oncology 06/13/[address] [address] Physician Fixture Relamper 06/13/24 Jessie Mast MD [address] [place] [address] Assigned Cancer Care Provider 06/26/24 documented as of this encounter
--- OUTSIDE RECORDS SUMMARY | 2024-09-23 23:11 | XMS_ITS | Clinical Summary ---
Author Organization [facility] Address [address] [place] [address] Care Team Providers Care Coal Unloader Name Role Phone Johny Davis MD Primary Care Provider , No Primary Unavailable Unavailable Allergies Active Allergy Reactions Criticality Noted Date Comments Vancomycin Anaphylaxis High 11/05/2016 Medications Bzkeysyp-Zs-Qzu -Fe-FA ( VITAMIN) tab tabletIndicatio ns:Encounter for supervision of other normal (HC) Take 1 tablet by mouth once daily. 0 7 Active VENTOLIN HFA 90 mcg/actuation inhaler 7 Active Breast Pump - PurchaseIndicat ions:History of 2 sections,Superv ision of high risk in third trimester (HC) For home use. Gestation age at delivery: term. Reason for need: maternal infant separation . Length of need: 12 months 1 unit 8 Active escitalopram oxalate (LEXAPRO) 10 mg tabletIndicatio ns:History of 2 sections Take 1 tablet by mouth every morning. 30 tablet 5 06/28/2017 9:26 AM CDT 8 Active acetaminophen (TYLENOL) 325 mg tabletIndicatio ns:Supervision of high risk in third trimester (HC) Take 1-2 tablets by mouth every 4 hours if needed (mild pain). Max acetaminophen dose: 4000mg in 24 hrs. 100 tablet 8 Active ibuprofen (MOTRIN IB) 200 mg tabletIndicatio ns:Supervision of high risk in third trimester (HC) Take 1-3 tablets by mouth every 6 hours if needed for Other (Specify) (for uterine cramping). Take with food. 100 tablet 8 Active Active Problems Problem Noted Date Diagnosed [...] 05/2016 Mild intermittent asthma without complication Immunizations Immunization Administration Dates Next Due Influenza, IIV4 (=>6mos) [...] Answer Date Recorded PHQ-2 Score 0 06/08/2018 Comments No Sex and Gender Information Value Date Recorded Sex Assigned at Not on file Legal Sex Female 9:21 AM CDT Gender Identity Not on file Sexual Orientation Not on file Obstetrics History Para Term AB IAB SAB Ectopic Multiple Livin g Live Births 3 3 3 0 0 0 0 0 3 3 Date Outcome GA Total Labor Labor/2nd/3rd Weight Sex Type Anes PTL Sho A1 A5 Name Clin 2010 Term 40w 0d F C-Sec tion Livin g 2013 Term 40w 0d M C-Sec tion Livin g 2017 Term 39w 2d 3.52 kg (7 lb 12.2 oz) M C-Sec tion Spinal Livin g 7 9 Ananda HARRIS Delivery Location:[facility] ([facility]) Last Filed Vital Signs Vital Sign Reading Time Taken Comments Blood Pressure 98/68 08/10/2017 10:59 AM CDT Pulse 64 08/10/2017 10:59 AM CDT Temperature 37 C (98.6 F) 06/28/2017 12:00 AM CDT Respiratory Rate 16 06/28/2017 8:49 [...] Hepatitis C screening for age 18-79 2000 Hepatitis B series for 19+ (1 of 3 - 19+ 3-dose series) 2001 BMI (ht and wt on same day) for age 18+ 08/10/2018 08/10/2017, 04/23/2017, 11/05/2016 Depression screening for age 12+ 08/10/2018 08/10/2017, 01/01/2017 COVID-19 vaccine series ( season) 2023 Influenza Vaccine (Season Ended) 2024 01/01/2017 Pap test for age 21-65 07/20/2026 , 07/21/2023, 03/17/2018, Additional history exists Tetanus booster 04/01/2027 04/01/2017, 05/07/2008 HIV for age 15-65 Completed 11/05/2016 Tdap Completed 04/01/2017, 05/07/2008 Pneumococcal series for age 6-49 Aged Out No longer eligible based on patient's age to complete this topic Procedures Procedure Name Priority Date/Time Associated Diagnosis Comments PSYCHIATRIC NURSE THIN PREP PAP SCREEN IMAGED Routine 07/21/2023 3:05 PM CDT ANTI HIV 1/2 Routine 11/05/2016 12:25 PM CDT Encounter for supervision of other normal (HC) from Last 3 Months or Most Recently Relevant to Health Maintenance Results * PSYCHIATRIC NURSE THIN PREP PAP SCREEN IMAGED (07/21/2023 3:05 PM CDT) Case Report Gynecologic Cytology Report Case: [id number] Authorizing Provider: Unknown, Doctor Collected: 07/21/2023 1505 Ordering Location: [facility] Received: 07/23/2023 1039 First Screen: Yifan Broderick Specimen: PSYCHIATRIC NURSE ThinPrep Vial Screening, Cervical 08/05/2023 7:56 AM CDT [facility] INTERPRETATION/ RESULT NEGATIVE FOR INTRAEPITHELIAL LESION OR MALIGNANCY (NIL) (none) 08/05/2023 7:56 AM CDT [facility] at 0756 CDT SPECIMEN ADEQUACY Satisfactory for evaluation No endocervical component seen 08/05/2023 7:56 AM CDT [facility] HPV REQUEST HPV and PAP 08/05/2023 7:56 AM CDT [facility] Date of LMP 07/06/2023 08/05/2023 7:56 AM CDT [facility] Last Pap Date 08/05/2023 7:56 AM CDT [facility] Comment:2018 Last Pap Result NIL 7:56 AM CDT [facility] Abnormal Pap or Donaldson Bx in last 5 years No 08/05/2023 7:56 AM CDT [facility] Menstrual Status Regular Periods 08/05/2023 7:56 AM CDT [facility] Donaldson Bx Done Today No 08/05/2023 7:56 AM CDT [facility] Additional Information 08/05/2023 7:56 AM CDT [facility] Comment: Interpreted at [facility] - [address], [place], [place] [address] Automated Review Successful 08/05/2023 7:56 AM CDT [facility] Comment:Specimen processed s uccessfully by automated celery stripper device, ThinPrep Imaging System, [employer] ANCILLARY TESTING PSYCHIATRIC NURSE HPV Ordered, Please see separate report 08/05/2023 7:56 AM CDT [facility] Note The pap test is [...] and malignant lesions. 08/05/2023 7:56 AM CDT [facility]- EN[facility] LAB[facility] Other (Cervical) 07/21/2023 3:05 PM CDT 07/23/2023 10:39 AM CDT us Doctor Unknown PATHOLOGY/CYTOLOGY Final Result [facility] [address] [place] [address], [place] * ANTI HIV 1/2 (11/05/2016 12:25 PM CDT) HIV-1/HIV-2 ANTIBODY Non-Reacti ve Non-Reacti ve 11/05/2016 7:20 PM CDT [facility] TRAL [facility] Blood BLOOD SPECIMEN / Unknown Venipuncture / Unknown 11/05/2016 12:25 PM CDT 11/05/2016 12:25 PM CDT Narrative [facility] - 11/05/2016 7:20 PM CDT HIV-1 p24 and HIV-1/HIV-2 Ab not detected Janet Fitzgerald FINANCIAL ASSISTANCE ADVISOR SEND OUTS Final Result [facility] [address] [place] [address], [place] from Last 3 Months or Most Recently Relevant to Health Maintenance Insurance [address] [place] [id number] [place] [id number] [employer] WORK[employer] COMP Advance Directives * Full Code (Latest Code Status on File) Date Activated Date Inactivated Comments 06/26/2017 5:56 AM 06/28/2017 2:24 PM Question Answer Comments Code Status Discussion: Discussed Care Teams Coal Unloader Relationship Specialty Start Date End Date Johny Davis MD PCP - General Family Practice 05/31/17 , No Primary . 10/31/16
--- OUTSIDE RECORDS SUMMARY | 2024-09-23 23:11 | XMS_ITS | Clinical Summary ---
Author Organization [place] Address [facility] [place] [address] Care Team Providers Care Information Technology Intern Name Role Phone Jessie Mast MD Unavailable July Unavailable Trish Vincent PA-C Primary Care Provider + Jessie Mast MD Unavailable Allergies Active Allergy Reactions Criticality Noted Date Comments Vancomycin Anaphylaxis,Difficul ty breathing,Itching,Other (See Comments),Rash,Swelling High 10/07/2010 Swelling, itching, rash Medications albuterol (PROAIR HFA/PROVENTIL HFA/VENTOLIN HFA) 108 (90 BASE) MCG/ACT InhalerIndicati ons:Exercise-in duced asthma Inhale 2 puffs into the lungs every 6 hours as needed for shortness of breath / dyspnea or wheezing 1 Inhaler 1 7 Active amphetamine-dex troamphetamine (ADDERALL) 30 MG tablet Take 30 mg by mouth 2 times daily. Active Active Problems Problem Noted Date Diagnosed Date Exercise-induced asthma 09/09/2016 Encounters Date Type Department Care Team Description 08/16/2024 [place] [facility] [address] [place] [facility] [place] [place] [phone] Lanette Ashley RN 06/27/2024 [place] [facility] [place] [phone] [place] [address] [place] [facility] [place] [place] [phone] Jessie Mast MD 06/24/2024 10:10 AM CDT Ancillary Procedure [facility] [address] [place] [phone] Jessie Mast MD RUQ abdominal pain 06/24/2024 Travel 06/23/2024 Telephone [facility] [address] [place] [address] Jessie Mast MD Schedule Surgery from Last 3 Months Immunizations Immunization Administration Dates Next Due HPV 06/29/2006,04/29/2006 TDAP Vaccine (Adacel) 11/03/2013,04/29/2006 Family History Medical History Relation Comments Cancer Maternal Grandmother non-hodgkin s Breast Cancer Paternal Aunt Cancer Paternal Aunt Kidney Neurologic Disorder Paternal Grandfather Kulwinder ons Relation Status Comments Maternal Grandmother Paternal Aunt Paternal Grandfather Social History Tobacco Use Types Packs/Day Years [...] on file Legal Sex Female 4:23 AM SUPERVISOR HEAVY EQUIPMENT Gender Identity Not on file Sexual Orientation Not on file Last Filed Vital Signs Vital Sign Reading Time Taken Comments Blood Pressure 95/62 06/21/2024 8:35 AM CDT Pulse 65 06/21/2024 8:35 AM CDT Temperature 36.7 C (98 F) 06/21/2024 8:35 AM CDT Respiratory Rate 16 06/21/2024 8:35 AM CDT Oxygen Saturation 99% 06/21/2024 8:35 AM CDT Inhaled Oxygen Concentration - - Weight 79.4 kg (175 lb) 06/21/2024 8:35 AM CDT Height 174.6 cm (5' 8.75) 06/21/2024 8:35 AM CD T Body Mass Index 26.03 06/21/2024 8:35 AM CDT Plan of Treatment Scheduled Procedures Name Priority Associated Diagnoses Date/Ti me SALPINGO-OOPHORECTOMY, LAPAROSCOPIC Adnexal mass REMOVAL, INTRAUTERINE DEVICE Adnexal mass Health Maintenance Due Date Last Done Comments ANNUAL REVIEW OF HM ORDERS 1982 ASTHMA ACTION PLAN 1982 MAMMO SCREENING 1982 NICOTINE/TOBACCO CESSATION COUNSELING Q 1 YR 1982 HEPATITIS B VACCINE (1 of 3 - 19+ 3-dose series) 2001 PNEUMOCOCCAL VACCINE: PEDIATRICS (0 to 5 YEARS) AND AT-RISK PATIENTS (6 to 49 YEARS) (1 of 2 - PCV) 2001 HPV VACCINE (3 - 3-dose series) 10/27/2006 06/29/2006, 04/29/2006 YEARLY PREVENTIVE VISIT 05/15/2016 05/15/19 16, 02/17/2012, 08/08/2009, Additional history exists ASTHMA CONTROL TEST 03/11/2017 09/09/2016 LIPID 2022 COVID-19 VACCINE ( season) 2023 08/16/2020 PHQ-2 (once per calendar year) 2024 PAP 07/20/2024 07/21/2023, 0409/2023, 04/06/2014, Additional history exists INFLUENZA VACCINE (Season Ended) 2024 03/04/2019, 01/01/2017, 05/15/2015, Additional history exists DTAP/TDAP/TD VACCINE (7 - Td or Tdap) 04/01/2027 04/01/2017, 11/03/2013, 02/17/2012, Additional history exists DIABETES SCREENING 06/22/2027 06/21/2024 ADVANCE CARE PLANNING 06/14/2029 06/14/2024 ZOSTER VACCINE (1 of 2) 2032 HEPATITIS C SCREENING Completed 06/02/2024 HIV SCREENING Completed 06/02/2024, 05/2016, 06/22/2013, Additional history exists MENINGITIS VACCINE Aged Out No longer eligible based on patient's age to complete this topic Goals Goal Patient Goal Type Associated Problems Recent Progress Patient-Stated? Author MYC ECC SURG ENROLL Care Plan MyC ECC SURG ENROLL No Dannielle Harp Procedures Procedure Name Priority Date/Time Associated Diagnosis Comments US ABDOMEN LIMITED Routine 06/24/2024 10 :24 AM CDT RUQ abdominal pain COMPREHENSIVE METABOLIC PANEL Routine 06/21/2024 9:33 AM CDT Adnexal mass ABSTRACT HIV Routine 06/02/2024 12:12 PM SUPERVISOR HEAVY EQUIPMENT HEPATITIS C (HIM EXTERNAL RESULT) Routine 06/02/2024 12:12 PM SUPERVISOR HEAVY EQUIPMENT PAP SMEAR - HIM PATIENT REPORTED Routine 04/06/2014 from Last 3 Months or Most Recently Relevant to Health Maintenance Results * US Abdomen Limited (06/24/2024 10:24 AM CDT) Anatomical Region Laterality Modality Abdomen/Pelvis Ultrasound 06/24/2024 10:2 4 AM CDT Impressions 06/24/2024 10:54 AM CDT IMPRESSION: 1. Cholecystectomy. No biliary dilation. 2. No specific sonographic abnormality in the infraumbilical region. Narrative 06/24/2024 10:54 AM CDT EXAM: US ABDOMEN LIMITED LOCATION: [facility] DATE: 06/24/2024 INDICATION: RUQ pain, elevated LFT's, previous cholecystectomy COMPARISON: CT abdomen pelvis 06/16/2024 TECHNIQUE: Limited abdominal ultrasound. FINDINGS: GALLBLADDER: Cholecystectomy. BILE DUCTS: No biliary dilatation. The common duct measures 3 mm. LIVER: Normal parenchyma with smooth contour. No focal mass. The portal vein is patent with flow in the normal direction. RIGHT KIDNEY: No hydronephrosis. PANCREAS: The visualized portions are normal. No ascites. OTHER: Additional images obtained of the infraumbilical region. No significant sonographic abnormality. Procedure Note Jt Trujillo MD - 06/24/2024 EXAM: US ABDOMEN LIMITED LOCATION: [facility] DATE: 06/24/2024 INDICATION: RUQ pain, elevated LFT's, previous cholecystectomy COMPARISON: CT abdomen pelvis 06/16/2024 TECHNIQUE: Limited abdominal ultrasound. FINDINGS: GALLBLADDER: Cholecystectomy. BILE DUCTS: No biliary dilatation. The common duct measures 3 mm. LIVER: Normal parenchyma with smooth contour. No focal mass. The portalvein is patent with flow in the normal direction. RIGHT KIDNEY: No hydronephrosis. PANCREAS: The visualized portions are normal. No ascites. OTHER: Additional images obtained of the infraumbilical region. Nosignificant sonographic abnormality. IMPRESSION: 1. Cholecystectomy. No biliary dilation. 2. No specific sonographic abnormality in the infraumbilical region. Jessie Victoria MD [facility] US ORDERABLES Fin al Result * (ABNORMAL) Comprehensive metabolic panel (BMP + Alb, Alk Phos, ALT, AST, Total. Bili, TP) (06/21/2024 9:33 AM CDT) Sodium 133(L) 135 - 145 mmol/L 06/21/2024 10:09 AM CDT LABORATORY Potassium 4.3 3.4 - 5.3 mmol/L 06/21/2024 10:09 AM CDT LABORATORY Carbon Dioxide (CO2) 26 22 - 29 mmol/L 06/21/2024 10:09 AM CDT LABORATORY Anion Gap 8 7 - 15 mmol/L 06/21/2024 10:09 AM CDT LABORATORY Urea Nitrogen 10.2 6.0 - 20.0 mg/dL 06/21/2024 10:09 AM CDT LABORATORY Creatinine 0.96(H) 0.51 - 0.95 mg/dL 06/21/2024 10:09 AM CDT LABORATORY GFR Estimate 76 >60 mL/min/1.7 3m2 06/21/2024 10:09 AM CDT [facility] Comment:eGFR calculated us2020 CKD-EPI equation. Calcium 9.7 8.8 - 10.4 mg/dL 06/21/2024 10:09 AM CDT LABORATORY Chloride 99 98 - 107 mmol/L 06/21/2024 10:09 AM CDT LABORATORY Glucose 78 70 - 99 mg/dL 06/21/2024 10:09 AM CDT LABORATORY Alkaline Phosphatase 121 40 - 150 U/L 06/21/2024 10:09 AM CDT LABORATORY AST 435(H) 0 - 45 U/L 06/21/2024 10:09 AM CDT LABORATORY ALT 198(H) 0 - 50 U/L 06/21/2024 10:09 AM CDT LABORATORY Protein Total 6.8 6.4 - 8.3 g/dL 06/21/2024 10:09 AM CDT [facility] Albumin 4.4 3.5 - 5.2 g/dL 06/21/2024 10:09 AM CDT LABORATORY Bilirubin Total 1.1 <=1.2 mg/dL 06/21/2024 10:09 AM CDT LABORATORY Blood STRUCTURE OF RIGHT UPPER LIMB / Unknown Venipuncture / Unknown 06/21/2024 9:33 AM CDT 06/21/2024 9:41 AM CDT us Jessie Victoria MD LAB - BLOOD ORDERABLE S Final Result LABORATORY [facility] [address] Lab (1st floor, no room number) [place] [address], [facility] * ABSTRACT HIV (06/02/2024 12:12 PM SUPERVISOR HEAVY EQUIPMENT) HIV 1&2 EXT Non-Reacti ve [facility] Blood 06/02/2024 12:1 2 PM [facility] - 06/02/2024 12:12 PM [facility]- External Lab Results us Provider Outside LAB - HIM EXTERNAL RESULT Final Result Performing Organization Address City/[facility]/ZIP Co de Phone Number [facility] [address] [place], [place] [id number] [place] [address] * Hepatitis C (HIM External Result) (06/02/2024 12:12 PM SUPERVISOR HEAVY EQUIPMENT) Hep C HIM See Scanned Document [facility] 06/02/2024 12:1 2 PM [facility] - 06/02/2024 12:12 PM [facility]- External Lab Results us Provider Outside LAB - HIM EXTERNAL RESULT Final Result [facility] [address] [place] [address], [facility] [phone] * PAP Smear - HIM Patient Reported (04/06/2014) PAP Smear - HIM Patient Reported Negative EXTERNAL LAB 04/06/2014 Narrative EXTERNAL LAB - 04/06/2015 Pap smear done on this date: 2014 (approximately), by this group: [facility], results were normal us Patient Reported LABORATORY Final Result EXTERNAL LAB External Lab from Last 3 Months or Most Recently Relevant to Health Maintenance Additional Health Concerns Active Problems Noted Date Diagnosed Date MyC ECC SURG ENROLL 06/23/[address] [place] [id number] [employer] [place] [address] [place] [id number] [facility] Care Teams Information Technology Intern Relationship Specialty Start Date End Date Trish Vincent PA-C [address] [place] [phone] PCP - General Family Medicine 06/16/24 Jessie Mast MD [address] [place] [address] Gynecologic Oncology 06/13/[address] [address] Physician Abrasive Mixer 06/13/24 Jessie Mast MD [address] [place] [address] Assigned Cancer Care Provider 06/26/24
--- OUTSIDE RECORDS SUMMARY | 2024-09-23 23:11 | XMS_ITS | Clinical Summary ---
Author Organization [facility] Address [address] [place] [address] Care Team Providers Care Blacksmith Hammer Operator Name Role Phone Needs Pcp, Assignment Primary Care Provider [phone] Source Comments You are receiving this document as you are listed as the primary care provider,follow-up provider, or the patient has been referred to you for consultation.This is in compliance with the Medicare and[facility]ive [facility],which states Providers who transition their patient to another setting of careor provider of care or refers their patient to another provider of care shouldprovide summary care record for each transition of care or referral. [facility] Allergies Active Allergy Reactions Criticality Noted Date Comments Vancomycin Other, see comments 02/10/2011 Swelling, itching, rash Medications polyethylene glycol 3350 (AKA GLYCOLAX) powder Take 17 g by mouth daily. . 527 g 2 02/10/2011 Active ibuprofen (MOTRIN) 800 MG tablet Take 800 mg by mouth every 8 hours as needed for Pain. Active methocarbamol (ROBAXIN) 750 MG tablet Take 1-2 po q 6 hrs prn spasm 32 Tab 0 06/08/2016 Active HYDROcodone-acet aminophen (NORCO) 5-325 MG tablet Take 1-2 Tabs by mouth every 6 hours as needed for Pain. 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 Not on file Not on file Not on file Last Filed Vital Signs Vital Sign Reading Time Taken Comments Blood Pressure 109/76 06/08/2016 2:47 PM CYTOLOGY TECHNOLOGIST Pulse 55 06/08/2016 2:47 PM CYTOLOGY TECHNOLOGIST Temperature 36.6 C (97.9 F) 06/08/2016 12:22 PM CYTOLOGY TECHNOLOGIST Respiratory Rate 16 06/08/2016 12:22 PM CYTOLOGY TECHNOLOGIST Oxygen Saturation - - Inhaled Oxygen Concentration - - Weight 86.2 kg (190 lb) 02/10/2011 2:50 PM CYTOLOGY TECHNOLOGIST Height 172.7 cm (5' 8) 02/10/2011 2:50 PM CYTOLOGY TECHNOLOGIST Body Mass Index 28.89 02/10/2011 2:50 PM CYTOLOGY TECHNOLOGIST Plan of Treatment Health Maintenance Due Date Last Done Comments Hep C Screening (Preventive Services) 1982 Mammogram 1982 HIV Screening (Preventive Services) 1998 Adult Preventive Visit 2000 HepB Vaccine (1) 2001 Cervical Cancer Screening Due 12/07/2010 12/06/2010 DTaP/Tdap/Td Vaccine (2 - Tdap) 05/07/2018 9 COVID-19 Vaccine (2023-2 5 season) 2023 Influenza Vaccine (Season Ended) 2024 Zoster/Shingles Vaccine (1 of 2) 2032 HPV Vaccine Aged Out No longer eligi ble based on patient's age to complete this topic HepA Vaccine Aged Out No longer eligi ble based on patient's age to complete this topic Hib Vaccine Aged Out No longer eligi ble based on patient's age to complete this topic IPV (Polio) Vaccine Aged Out No longe r eligible based on patient's age to complete this topic MCV4 Vaccine Aged Out No longer eligi ble based on patient's age to complete this topic Meningococcal B Vaccine Aged Out No l onger eligible based on patient's age to complete this topic Pneumococcal Vaccine Aged Out No long er eligible based on patient's age to complete this topic Procedures Procedure Name Priority Date/Time Associated Diagnosis Comments PAP TEST-ROUTINE 12/06/2010 12:0 0 AM CDT from Last 3 Months or Most Recently Relevant to Health Maintenance Results * PAP TEST-ROUTINE (12/06/2010 12:00 AM CDT) 12/06/2010 Narrative Transcriptions [facility], PROVIDER - 12/06/2010 12:00 AM CDT us Physician Unknown [email or web address] Final Result from Last 3 Months or Most Recently Relevant to Health Maintenance Care Teams Blacksmith Hammer Operator Relationship Specialty Start Date End Date Needs Pcp, [place] [address] PCP - General 06/08/16
[2024-09-23 23:15] VITALS: BP 115/71; PULSE 75; RESP 18; TEMP 36.7; O2SAT 99; BMI 26.6
--- NOTE | 2024-09-23 23:19 | ED.FEMALEGU ---
HPI - Female Genitourinary General Time Seen by Provider: 23:20 Date Seen: 09/23/24 Chief complaint: Unspecified Complaint, Adult Stated complaint: pain in private area Time Seen by Provider: 09/23/24 23:18 Source: patient and RN notes reviewed Mode of arrival: ambulatory Limitations: no limitations History of Present Illness HPI Narrative: This 43-year-old female is coming in with pelvic pain. She states it hurts in her groin, hurts to sit throughout, even maybe into her buttock area. She has had some jelly type vaginal discharge over this last week. She has been on 4 rounds of antibiotics for strep over the last few months, was given antifungals to take with the antibiotic. The 4th antibiotic she got gave her hives, she still has some hives. She has had no nausea vomiting, no fevers, no diarrhea. She has a ParaGard IUD in. She has had 3 children. She is lying on her side on the bed, is actually found a position of comfort and really does not want to move at this point. She has a feeling that it feels like her organs could fall out. There is pelvic pain, there is vaginal pain. She has been getting more drainage vaginally, more like it would be around ovulation. She did have a new sexual partner few months ago. She had been tested and was negative prior to that. She does have a history of ovarian cyst, states she has chronic cysts. Did look at the urgent care notes. She was placed on doxycycline for possible folliculitis. Looking at patient's hives, some seem like they are more scaly, on questioning she does have psoriasis. She states she normally does not get psoriasis in the summer. Reviewed with her that strep can bring out psoriasis. I wonder if some of the red bumps or actually psoriasis lesions coming due to strep. She was placed on doxycycline in the clinic in urgent care on September 13. This should have affectively treated any chlamydia. Related Data Home Medications ?Medication ?Instructions ?Recorded ?Confirmed copper 380 square mm intrauterine 1 device intrauterine ONCE 06/02/24 09/23/24 device (ParaGard T 380A) Previous Rx's ?Medication ?Instructions ?Recorded fluconazole 150 mg tablet 150 mg PO Q3D 2 doses #2 tabs 09/13/24 dextroamphetamine-amphetamine 20 30 mg (1.5 x 20 mg) PO QDAY #45 09/16/24 mg tablet tabs doxycycline hyclate 100 mg tablet 100 mg PO BID #27 tabs 09/24/24 metronidazole 500 mg tablet 500 mg PO BID #27 tabs 09/24/24 Allergies Allergy/AdvReac Type Severity Reaction Status Date / Time vancomycin Allergy Severe Swelling Verified 09/23/24 23:17 of Lip/Tongue/Throat Review of Systems Status of ROS: Reports: 6 or more systems reviewed and unremarkable except as noted in History and [facility] Dysthymia ?F34.1 - Dysthymic disorder (ICD-10) Closed fracture of head of left radius ?S52.122A - Displaced fracture of head of left radius, initial encounter for closed fracture (ICD-10) Surgical History History of ovarian cystectomy ?Z98.890 - Other specified postprocedural states (ICD-10) ?Z87.42 - Personal history of other diseases of the female genital tract (ICD-10) Status post laparoscopic cholecystectomy ?Z90.49 - Acquired absence of other specified parts of digestive tract (ICD-10) History of laparoscopy ?Z98.890 - Other specified postprocedural states (ICD-10) Status post ?Z98.891 - History of uterine scar from previous surgery (ICD-10) Social History Smoking Status: Current every day smoker What tobacco products do you use: cigarettes Smoking packs per day: 0.25 Smoking cigarettes per day: 5.0 Years smoked: 2 Smoking pack-years: 0.50 Second hand tobacco smoke exposure: Yes How often do you have a drink containing alcohol: never How often do you have six or more drinks on one occasion: Never AUDIT-C Alcohol total score: 0 Non-prescribed substance use: marijuana (any form) Non-prescribed substance use details: weed- smoke. Last used last night 02/15 Caffeine: Yes Are you using contraception or practicing any form of control: No service: No Exam Const: Vital Signs, click to edit/add: Vital Signs - 24 hr 09/23/24 23:15 Temperature 98.0 F Pulse Rate [Right Pulse Oximeter] 75 Respiratory Rate 18 Blood Pressure [Ri ght Upper Arm] 115/71 Pulse Oximetry 99 Oxygen Delivery Me thod Room Air This 43-year-old female is alert, interactive. Does seem to have pain with movement but once in position of comfort looks fine. She is very pleasant. Sclera clear, face atraumatic. CV regular rate and rhythm, no murmur, normal S1-S2. Lungs are clear, good air entry, no wheezing or crackles. Abdomen is soft, nondistended, no organomegaly. She has definite left lower quadrant to some extension into the suprapubic area there is somewhat of a sense of guarding in the left lower quadrant but no rebound. Do not feel any underlying mass. She has small nondescript erythematous areas on the mons pubis, hands is shaved. I do note on her legs are small little erythematous areas and some seem to have morphed into larger lesions with scaling that look consistent with psoriatic lesions. Her external genitalia is otherwise normal, no inguinal adenopathy noted. Do note moderate amount of whitish thicker to discharge but does not look clumpy. It is not odorous. Vaginal co says normal. She has pain when I attempt to put the speculum up into the vagina. Bimanual exam reveals tenderness with cervical motion, generalized tenderness over the left adnexal area as well as the uterus, not so much tenderness in the right pelvic area. Difficult to assess if there is enlargement of pelvic organs. Documenting provider has reviewed patient's vital signs: yes Course Course ED Course: Wet prep and GC and chlamydia were collected. She should effectively have been treated for chlamydia with doxycycline. Will test however. Given her pain, do think that pelvic pathology is possible. Will order ultrasound looking for ovarian cysts and structural pathology. Consideration for PID and other pelvic infections will be entertained. Will obtain blood work. Will order Toradol 15 mg IV which she does want at this time. Reevaluation(s) Time of Reevaluation #1: 01:51 Reevaluation #1: Patient was sleeping, she states her pain is much better. She can still feel some discomfort with movement or coughing but overall much better. She did not end up wanting an IV, did not take the Toradol as she was already feeling better per report. We reviewed her ultrasound. She has large ovarian cyst that maybe dermoids. She had seen somebody in [employer] system and the reportedly was not follow through or follow-up or something happen. She does have an appointment with [facility] next week. We did discuss ovarian torsion, there is no evidence on the ultrasound tonight. We did discuss that it could be intermittent. Did re-evaluate her abdomen and she is definitely tender over the uterus and the left lower quadrant more so than the right. Thus, I do think we still need to consider PID. Her GC and chlamydia are negative but there can be other bacteria that can do this. She does have an IUD in place. Would recommend covering her with the Flagyl and doxycycline. She is not needing hospitalization, does not meet any criteria. Do not think that this is torsion. Vital Signs Vital signs: Initial Vital Signs Temperature 98.0 F 09/23/24 23:15 Temperature Source Temporal Artery Scan 09/23/24 23:15 Pulse Rate 75 09/23/24 23:15 Respiratory Rate 18 09/23/24 23:15 Blood Pressure 115/71 09/23/24 23:15 Blood Pressure Mean 85 09/23/24 23:15 Blood Pressure Position Sitting 09/23/24 23:15 Pulse Oximetry 99 09/23/24 23:15 Oxygen Delivery Method Room Air 09/23/24 23:15 Vital Signs Temperature 98.0 F 09/23/24 23:15 Pulse Rate 75 09/23/24 23:15 Respiratory Rate 18 09/23/24 23:15 Blood Pressure 115/71 09/23/24 23:15 Pulse Oximetry 99 09/23/24 23:15 Oxygen Delivery Method Room Air 09/23/24 23:15 Temperature 98.0 F 09/23/24 23:15 Pulse Rate 75 09/23/24 23:15 Respiratory Rate 18 09/23/24 23:15 Blood Pressure 115/71 09/23/24 23:15 Pulse Oximetry 99 09/23/24 23:15 Oxygen Delivery Method Room Air 09/23/24 23:15 Medications Administered Medications: Discontinued Medications Generic Name Dose Route Start Last Admin Trade Name Freq PRN Reason Stop Dose Admin Ketorolac Tromethamine 15 mg 09/23/24 23:52 09/24/24 00:26 Ketorolac 15 Mg/Ml Inj IVP 09/23/24 23:53 Not Given ONCE ONE MDM - Female Genitourinary Lab Data Attestation: I reviewed the patient's lab results. Labs: Lab Results 09/23/24 09/23/24 09/23/24 Range/Units 23:52 23:53 23:56 WBC 9.02 (4.50-11.00) K/uL RBC 4.13 (4.00-5.20) m/uL Hgb 12.6 (12.0-16.0) gm/dL Hct 37.2 (33.0-51.0) % MCV 90 (80-100) fL MCH 31 (26-34) pg MCHC 34 (32-36) gm/dL RDW Coeff of Kedar 13.0 (11.5-15.5) % Plt Count 256 (140-440) K/uL Neut % (Auto) 74.5 H (42.0-72.0) % Lymph % (Auto) 16.7 L (20-44) % Arthur % (Auto) 6.9 (0.0-11.0) % Eos % (Auto) 1.4 (0.0-7.0) % Baso % (Auto) 0.4 (0.0-3.0) % Neut # (Auto) 6.70 (1.7-7.0) K/uL Lymph # (Auto) 1.50 (0.90-2.90) K/uL Arthur # (Auto) 0.60 (0.00-0.90) K/UL Eos # (Auto) 0.13 (0.00-0.50) K/uL Baso # (Auto) 0.04 (0.00-0.30) K/uL Abs Immat Gran (auto) 0.01 (0.00-0.30) K/uL Imm/Tot Granulo (auto) 0.1 % Sodium 135 (135-149) mmol/L Potassium 3.6 (3.6-5.1) mmol/L Chloride 105 (96-114) mmol/L Carbon Dioxide 27 (20-32) mmol/L Anion Gap 3 L (7-15) mEq/L BUN 15 (5-24) mg/dL Creatinine 0.9 (0.5-1.5) mg/dL Estimated Creat Clear 71.03 Estimated GFR 82 ml/min Glucose 100 (60-115) mg/dL Calcium 9.0 (8.4-10.6) mg/dL Total Bilirubin 0.3 (0.1-1.5) mg/dL AST 25 (12-35) U/L ALT 19 (4-35) U/L Alkaline Phosphatase 69 (40-150) U/L C-Reactive Protein 0.5 (0.5-1.0) mg/dL Total Protein 6.2 (6.0-8.3) g/dL Albumin 3.7 (3.3-5.0) g/dL Urine Color Yellow (Yellow) Urine Appearance Clear (Clear) Urine pH 6.5 (5.0-8.5) Ur Specific [place] 1.010 (1.000-1.030) Urine Protein Negative (Negative) Urine Glucose (UA) Negative (Negative) Urine Ketones Negative (Negative) Urine Blood Negative (Negative) Urine Nitrite Negative (Negative) Urine Bilirubin Negative (Negative) Urine Urobilinogen 0.2 (0.2-1.0) Ur Leukocyte Esterase Negative (Negative) Urine RBC 0-2 (0-2) Urine WBC 0-2 (0-5) Ur Squamous Epith Cells None (None-Few) Urine Bacteria None (None) Urine HCG, Qual Negative (Negative) Vaginal Trichomonas No Trichomonas Seen (None Seen) Vaginal Yeast No Yeast Seen (None Seen) Vaginal Clue Cells No Clue Cells Seen (None Seen) C.trachomatis Ampl DNA NOT DETECTED (No Detected) N.gonorrhoeae Ampl DNA NOT DETECTED (No Detected) Imaging Data US pelvis: Attestation: I have reviewed the pertinent imaging results. Radiologist's impression: Patient: DANIELLE HARRIS Facility:?[facility] Patient ID:?[id number] Site Patient ID:?[id number]. Site :?[id number] Study:?US-Pelvis TRANSVAGINAL W/ DOPPLER-09/24/2024 12:44:53 AM Ordering Physician:Merle Couch Final Report: INDICATION: Pelvic pain. TECHNIQUE: Ultrasound pelvis transvaginal for better assessment or to better visualize the endometrium. Real-time sonographic images with spectral and color Doppler imaging of the ovaries were obtained. COMPARISON: 06/09/2024. FINDINGS: Uterus: 9.8 x 4.8 x 5.8 cm. Unremarkable echotexture of the myometrium. No masses. Adequately positioned IUD. Endometrium: Grossly unremarkable. Right ovary 8.5 x 4.6 x 7.3 cm. Left ovary 10.0 x 7.0 x 9.4 cm. Grossly similar bilateral heterogeneous ovarian lesions with dot dash pattern, not discretely measured. Posterior acoustic shadowing is demonstrated in certain areas. Little to no vascularity within the lesions. Normal arterial and venous blood flow is demonstrated in both ovaries. Cul-de-sac: No significant free fluid. IMPRESSION: Again noted bilateral ovarian lesions favored to represent dermoid cysts. MR with contrast could be considered for confirmation, if clinically indicated. No evidence of torsion. Dictated by Jairo Gomez MD @ 09/24/2024 1:36:18 AM (Electronic Signature) Discharge Plan Discharge Clinical Impression: Pelvic pain, Complex cyst of both ovaries Patient Disposition: Home, Self-Care Condition: Stable Instructions: Pelvic Inflammatory Disease (ED), Ovarian Cyst (ED) Additional Instructions: It is not completely clear what the precise etiology your lower abdominal/pelvic pain is tonight. We are covering for infection with the doxycycline and the Flagyl. It is possible it could be from these ovarian lesions. If you are having increasing severity of pain, need to be re-evaluated and ensure that there is no ovarian torsion happening. It is fine to use Tylenol and/or ibuprofen per bottle directions for pain management. This level of pain management will not mask ovarian torsion. I do recommend taking the antibiotics in case there is a component of infection causing this pain. The gonorrhea and chlamydia are negative but there can be other bacterial causes of pelvic inflammatory disease. Activity Level: Activity as Tolerated Prescriptions: New doxycycline hyclate 100 mg tablet 100 mg PO BID Qty: 27 0RF metronidazole 500 mg tablet 500 mg PO BID Qty: 27 0RF No Action ParaGard T 380A 380 square mm intrauterine device 1 device intrauterine ONCE Rx Instructions: as a single dose fluconazole 150 mg tablet 150 mg PO Q3D Qty: 2 0RF Rx Instructions: may repeat second dose 72 hrs after first dose if symptoms persist dextroamphetamine-amphetamine 20 mg tablet 30 mg PO QDAY Qty: 45 0RF Rx Instructions: 20 mg in AM and 10 mg at noon Follow Up/Referrals: Johny Davis MD [Primary Care Provider, Family Practice] Stand Alone Forms: MyHealth Info Instructions
[2024-09-24 00:03] LABS: Clue Cells No Clue Cells Seen (None Seen); Trichomonas No Trichomonas Seen (None Seen); Yeast No Yeast Seen (None Seen)
--- OUTSIDE RECORDS SUMMARY | 2024-09-24 00:04 | XMS_ITS | Clinical Summary ---
Author Organization [facility] Address [address] [place] [address] Care Team Providers Care Regional Cra Name Role Phone Needs Pcp, Assignment Primary Care Provider [phone] Source Comments You are receiving this document as you are listed as the primary care provider,follow-up provider, or the patient has been referred to you for consultation.This is in compliance with the Medicare and[facility],which states Providers who transition their patient to another setting of careor provider of care or refers their patient to another provider of care shouldprovide summary care record for each transition of care or referral. 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 Oxygen Saturation - - Inhaled Oxygen Concentration - - Weight 86.2 kg (190 lb) 02/10/2011 2:50 PM MAJOR APPLIANCE ASSEMBLY SUPERVISOR Height 172.7 cm (5' 8) 02/10/2011 2:50 PM MAJOR APPLIANCE ASSEMBLY SUPERVISOR Body Mass Index 28.89 02/10/2011 2:50 PM 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
--- OUTSIDE RECORDS SUMMARY | 2024-09-24 00:04 | XMS_ITS | CCD ---
Author Name Interface, T5Cpcward lity Address [address] [place], [place] [id number] Organization [facility] Address [address] [place] [id number] Care Team Providers Care Photographer Lithographic Name Role Phone Cheyenne Wright Unavailable Unavailable Care Plan Reason for Visit Encounters Diagnostic Results Social History
[2024-09-24 00:06] LABS: Appearance Urine Clear (Clear); Bilirubin Urine Negative (Negative); Blood Urine Negative (Negative); Color Urine Yellow (Yellow); Glucose Urine Negative (Negative); Ketones Urine Negative (Negative); Leukocyte Esterase Urine Negative (Negative); Nitrite Urine Negative (Negative); Protein Urine Negative (Negative); Urobilinogen Urine 0.2 (0.2-1.0); pH Urine 6.5 (5.0-8.5)
[2024-09-24 00:14] LABS: Ur HCG Qualitative* Negative (Negative)
[2024-09-24 00:15] LABS: RBC Urine 0-2 (0-2); WBC Urine 0-2 (0-5)
[2024-09-24 00:28] LABS: Basophils Absolute Auto 0.04 K/uL (0.00-0.30); Basophils Percent Auto 0.4 % (0.0-3.0); Eosinophils Absolute Auto 0.13 K/uL (0.00-0.50); Eosinophils Percent Auto 1.4 % (0.0-7.0); Hematocrit 37.2 % (33.0-51.0); Hemoglobin* 12.6 gm/dL (12.0-16.0); Immature Granulocytes Abs Auto 0.01 K/uL (0.00-0.30); Immature Granulocytes Pct Auto 0.1 %; Lymphocytes Percent Auto 16.7 % (20-44); Mean Corpuscular HGB Conc 34 gm/dL (32-36); Mean Corpuscular Hemoglobin 31 pg (26-34); Mean Corpuscular Volume 90 fL (80-100); Monocytes Percent Auto 6.9 % (0.0-11.0); Neutrophils Percent Auto 74.5 % (42.0-72.0); Platelet Count* 256 K/uL (140-440); Red Blood Count 4.13 m/uL (4.00-5.20); White Blood Count* 9.02 K/uL (4.50-11.00)
[2024-09-24 00:29] LABS: Slide Review Reflex No
[2024-09-24 00:40] LABS: Albumin* 3.7 g/dL (3.3-5.0); Chloride* 105 mmol/L (96-114)
[2024-09-24 00:41] LABS: Potassium* 3.6 mmol/L (3.6-5.1); Sodium* 135 mmol/L (135-149)
[2024-09-24 00:43] LABS: Alanine Aminotransferase* 19 U/L (4-35); Aspartate Amino Transferase* 25 U/L (12-35); Blood Urea Nitrogen* 15 mg/dL (5-24); Creatinine* 0.9 mg/dL (0.5-1.5); Est. Creatinine Clearance* 71.03; Estimated Glomerular Filt Rate 82 ml/min
[2024-09-24 00:44] LABS: Alkaline Phosphatase* 69 U/L (40-150); Anion Gap 3 mEq/L (7-15); Bilirubin Total* 0.3 mg/dL (0.1-1.5); Carbon Dioxide* 27 mmol/L (20-32); Glucose* 100 mg/dL (60-115); Total Protein* 6.2 g/dL (6.0-8.3)
[2024-09-24 00:47] LABS: C Reactive Protein* 0.5 mg/dL (0.5-1.0)
[2024-09-24 01:27] LABS: Chlamydia DNA Amplified* NOT DETECTED (No Detected); GC DNA Amplified* NOT DETECTED (No Detected)
[2024-09-24] MEDS: DOXYCYCLINE HYCLATE 100 MG PO (01:53)
[2024-09-24] MEDS: metroNIDAZOLE 500 MG TABLET PO (01:53)
--- NOTE | 2024-09-24 12:15 | CRLHL7_ITS ---
For Patients: As a result of the Century Cures Act, medical imaging exams and procedure reports are released immediately into your electronic medical record. You may view this report before your referring provider. If you have questions, please contact your health care provider. INDICATION: Pelvic pain. TECHNIQUE: Ultrasound pelvis transvaginal for better assessment or to better visualize the endometrium. Real-time sonographic images with spectral and color Doppler imaging of the ovaries were obtained. COMPARISON: 06/09/2024. FINDINGS: Uterus: 9.8 x 4.8 x 5.8 cm. Unremarkable echotexture of the myometrium. No masses. Adequately positioned IUD. Endometrium: Grossly unremarkable. Right ovary 8.5 x 4.6 x 7.3 cm. Left ovary 10.0 x 7.0 x 9.4 cm. Grossly similar bilateral heterogeneous ovarian lesions with dot dash pattern, not discretely measured. Posterior acoustic shadowing is demonstrated in certain areas. Little to no vascularity within the lesions. Normal arterial and venous blood flow is demonstrated in both ovaries. Cul-de-sac: No significant free fluid. IMPRESSION: Again noted bilateral ovarian lesions favored to represent dermoid cysts. MR with contrast could be considered for confirmation, if clinically indicated. No evidence of torsion. Dictated by Jairo Gomez MD @ 09/24/2024 1:36:18 AM (Electronically Signed)
== END 2024-09-24 02:21 | disposition home or self-care (01) ==
PROVIDERS: Emergency Provider Family Medicine; PCP Family Medicine
DX: R10.2 Pelvic and perineal pain (principal); N83.202 Unspecified ovarian cyst, left side; N83.201 Unspecified ovarian cyst, right side
CPT/HCPCS: 36415; 76830; 80053; 81001; 81025; 85025; 86140; 87210; 87491; 87591; 93976; 99284; A9270

== ENCOUNTER 2024-10-13 06:23 | Outpatient (CLI) | payer BC, SELFPAY ==
--- NOTE | 2024-10-13 07:42 | P.ANES_ITS ---
Anesthesia Charges Start Date/Time Anesthesia Start Date: 10/13/24 Anesthesia Start Time: 07:19 Stop Date/Time Anesthesia Stop Date: 10/13/24 Anesthesia Stop Time: 07:36 Coding CPT Codes CPT Codes: ANES UPR GI NDSC PX NOS - 18152 ([id number]) P1 - NORMAL HEALTHY PATIENT, QK - PLAYGROUND WORKER 2-4 CNCRNT ANES PROC, QX - PRODUCT EXPERT SVDiandra W/ MED DIRECTION
--- NOTE | 2024-10-13 07:42 | W.ANESCHARGE ---
Anesthesia Charges Start Date/Time Anesthesia Start Date: 10/13/24 Anesthesia Start Time: 07:19 Stop Date/Time Anesthesia Stop Date: 10/13/24 Anesthesia Stop Time: 07:36 Coding CPT Codes CPT Codes: ANES UPR GI NDSC PX NOS - 81973 ([id number]) P1 - NORMAL HEALTHY PATIENT, QK - PARKER 2-4 CNCRNT ANES PROC, QX - SPRING FORGER SVDiandra W/ MED DIRECTION
--- NOTE | 2024-10-13 08:10 | P.ANES_ITS ---
Anesthesia Charges Start Date/Time Anesthesia Start Date: 10/13/24 Anesthesia Start Time: 07:19 Stop Date/Time Anesthesia Stop Date: 10/13/24 Anesthesia Stop Time: 07:36 Coding CPT Codes CPT Codes: ANES UPR GI NDSC PX NOS - 96220 ([id number]) QK - MEAL COOKER 2-4 CNCRNT ANES PROC, QX - FARM MANAGER SVC W/ MED DIRECTION, P1 - NORMAL HEALTHY PATIENT
--- NOTE | 2024-10-13 08:10 | W.ANESCHARGE ---
Anesthesia Charges Start Date/Time Anesthesia Start Date: 10/13/24 Anesthesia Start Time: 07:19 Stop Date/Time Anesthesia Stop Date: 10/13/24 Anesthesia Stop Time: 07:36 Coding CPT Codes CPT Codes: ANES UPR GI NDSC PX NOS - 27022 ([id number]) QK - WOOD SCIENCE PROFESSOR 2-4 CNCRNT ANES PROC, QX - MAINTENANCE MECHANIC HELPER SVC W/ MED DIRECTION, P1 - NORMAL HEALTHY PATIENT
== END 2024-10-13 06:24 | disposition home or self-care (01) ==
LOC: OP CLINIC 06:25
PROVIDERS: PCP Family Medicine; Visit Provider Surgery
DX: R63.4 Abnormal weight loss (principal); R19.7 Diarrhea, unspecified; R11.0 Nausea
CPT/HCPCS: 00731; 43239; 88305; J2405; J2704; J3490

== ENCOUNTER 2024-10-20 09:42 | Outpatient (CLI) | payer BC, SELFPAY ==
--- NOTE | 2024-10-20 10:00 | CRLHL7_ITS ---
For Patients: As a result of the Century Cures Act, medical imaging exams and procedure reports are released immediately into your electronic medical record. You may view this report before your referring provider. If you have questions, please contact your health care provider. Indication: DIARRHEA, ELEVATED CA Technique: CT Chest/Abd/Pelvis [id number]/[id number] intravenous contrast Please note that all CT scans at this facility use dose modulation, iterative reconstruction, and/or weight-based dosing when appropriate to reduce radiation dose to as low as reasonably achievable. Comparison: Ultrasound pelvis 09/24/2024, 06/09/2024. Ultrasound abdomen 06/02/2024, 02/05/2023 Findings: In the chest, the visualized thyroid is within normal limits. No enlarged lymph nodes are present. There is no pleural or pericardial effusion. Perifissural nodule lingula measures 3 millimeters which does not require any further follow-up. Osseous structures are within normal limits. In the abdomen, the gallbladder is absent. Incidental focal fat deposition within the liver adjacent to the falciform ligament. Normal spleen. Adrenal glands are within normal limits. Normal kidneys. Pancreas is normal. No biliary obstruction. No retroperitoneal or mesenteric adenopathy. In the pelvis, the bladder is normal. No uterine fibroid. IUD is present. Bilateral ovarian dermoid cysts are present which measure 4.5 x 5.5 cm on the left and 3.9 x 4.6 cm on the right. Associated calcifications are present with these primarily fat attenuation masses. A small adjacent water attenuation right ovarian cyst is present which measures 2.2 cm. No inflammatory changes. No pelvic free fluid or abscess. No pelvic or inguinal adenopathy. Normal appendix. No bowel wall thickening. Small bowel loops appear unremarkable. Impression: No bowel obstruction or acute inflammation. Bilateral ovarian dermoids measuring up to 5.5 cm. Please note that all CT scans at this facility use dose modulation, iterative reconstruction, and/or weight-based dosing when appropriate to reduce radiation dose to as low as reasonably achievable. Dictated by Jairo Larson MD @ 10/20/2024 3:48:35 PM (Electronically Signed)
== END 2024-10-20 09:43 | disposition home or self-care (01) ==
LOC: CT 09:43
PROVIDERS: PCP Family Medicine; Visit Provider Obstetrics & Gynecology Gynecologic Oncology
DX: R19.7 Diarrhea, unspecified (principal); R97.8 Other abnormal tumor markers; D27.1 Benign neoplasm of left ovary; D27.0 Benign neoplasm of right ovary; R97.0 Elevated carcinoembryonic antigen [CEA]; R19.07 Generalized intra-abdominal and pelvic swelling, mass and lump
CPT/HCPCS: 71260; 74177; Q9967

== ENCOUNTER 2024-12-26 09:05 | Outpatient (CLI) | payer BC, SELFPAY ==
--- NOTE | 2024-12-26 09:15 | CRLHL7_ITS ---
For Patients: As a result of the Century Cures Act, medical imaging exams and procedure reports are released immediately into your electronic medical record. You may view this report before your referring provider. If you have questions, please contact your health care provider. Examination: US abdominal aorta Indication: FAMILY HX CARDIOVASCULAR DISEASE. Abdominal aortic aneurysm screening. Technique: Corral scale and color Doppler images of the aorta and common iliac arteries are obtained. Comparison: None Findings: Proximal aorta: 2.1 x 2.1 cm Mid aorta: 1.7 x 1.7 cm Distal aorta: 1.5 x 1.6 cm Right common iliac artery: 1.0 x 1.1 cm Left common iliac artery: 1.1 x 1.1 cm Impression: No abdominal aortic aneurysm. Dictated by Jairo Larson MD @ 12/26/2024 3:41:17 PM (Electronically Signed)
== END 2024-12-26 09:06 | disposition home or self-care (01) ==
LOC: US 09:06
PROVIDERS: PCP Family Medicine; Visit Provider Obstetrics & Gynecology Gynecologic Oncology
DX: Z13.6 Encounter for screening for cardiovascular disorders (principal); Z82.41 Family history of sudden cardiac death
CPT/HCPCS: 76775